=== PATIENT | female | born 1930 | race African-American/Black ===

== ENCOUNTER 2017-04-29 12:16 | Emergency (ER) | payer OTHER, MEDICAID ==
[~2017-04-29] VITALS: Ht 160 cm; Wt 61.2 kg
--- NOTE | 2017-04-29 12:44 | Emergency Room Report ---
History of Present Illness General Chief Complaint: Multiple Trauma/Fall Source: Patient, Family Member Present Illness HPI The patient is an 87 old female brought in by daughter after a fall today. States that she was sitting on the toilet, fell forward, and hit the left side of her head on a cabinet handle. She denies loss of consciousness. She denies falling to the ground. Pain is an 8/10 dull ache to the left side of the face and does not radiate. It worse with touch. She denies any visual changes, headache, nausea, vomiting, neck pain, chest pain, shortness of breath, weakness , numbness or tingling. The patient and daughter deny patient takes aspirin or any blood thinners. Allergies: Coded Allergies: No Known Allergies (Unverified , 04/29/17) Patient History Past Medical History: HTN Pertinent Family History: none Reviewed Nursing Documentation: PMH: Agreed, PSxH: Agreed Nursing Documentation-PMH Hx Hypertension: Yes Review of Systems All Other Systems: negative except mentioned in HPI Physical Exam Vital Signs Date Time Temp Pulse Resp B/P (MAP) Pulse Ox O2 Delivery O2 Flow Rate FiO2 04/29/17 12:39 97.3 68 20 199/71 99 Room Air Sp02 EP Interpretation: reviewed, normal General Appearance: no apparent distress, alert, GCS 15, non-toxic Head: normocephalic, other - Laceration lateral to L eyebrow ENT: hearing grossly normal, normal pharynx, no angioedema, normal voice Neck: full range of motion, supple/symm/no masses Respiratory: chest non-tender, lungs clear, normal breath sounds, speaking full sentences Cardiovascular #1: regular rate, rhythm, no edema Musculoskeletal: back normal, gait/station normal, normal range of motion, tender - L wrist Neurologic: alert, oriented x3, responsive, motor strength/tone normal, sensory intact, speech normal Psychiatric: judgement/insight normal, memory normal, mood/affect normal, no suicidal/homicidal ideation Skin: normal turgor, laceration - 3cm linear laceration lateral to L eyebrow with some bleeding Lymphatic: no adenopathy Procedures Laceration/Wound Repair Laceration/Wound Repair : Consent: Verbal Wound Location: face Wound's Depth, Shape: superficial, into muscle, linear Wound Length (cm): 3 Wound Explored: clean Irrigated w/ Saline (ccs): 100 Betadine Prep?: Yes Anesthesia: 1% Lidocaine, Lidocaine w/ Epi Volume Anesthetic (ccs): 4 Wound Debrided: minimal Wound Repaired With: sutures Suture Size/Type: 6:0, proline Number of Sutures: 5 Layer Closure?: Yes Deep Layer Suture Size/Type: 4:0, other - vicryl Number Deep Layer Sutures: 2 Sterile Dressing Applied?: Yes Splint Applied?: No Sling Applied?: No Patient Tolerated: Well Complications: None Medical Decision Making PA Attestation Dr. Hines is my supervising physician. Patient management was discussed with my supervising physician Diagnostic Impression: Primary Impression: Fall Qualified Codes: W19.XXXA - Unspecified fall, initial encounter Additional Impression: Facial laceration Qualified Codes: S01.81XA - Laceration without foreign body of other part of head, initial encounter ER Course The patient is an 87 old female presenting for fall and facial laceration Differential diagnoses include but not limited to fracture, ICH, laceration, contusion, concussion, among others PE: NAD Head is NC. No raccoon eyes or jolly signs PERRL EOMI There is a 3cm laceration lateral to L eyebrow The wound was irrigated with normal saline and cleaned with betadine. A 27g needle was used to administer 4mL of lidocaine w.o epi for local anaesthesia. 2 deep and 5 superficial sutures were placed with 4-0 Vicryl and 6-0 Nylon respectively. The wound was well approximated and the patient tolerated the procedure well. The wound was then cleaned and bacitracin was applied. CBC unremarkable. No leukocytosis or anemia. CMP shows mildly elevated Cr to 1.1 CK-MB mildly elevated. Trop negative. EKG shows no concerning findings. CT head and facial bones unremarkable [facility] needs [facility] with PMD. Laceration instructions given Laboratory Tests Test 04/29/17 13:30 White Blood Count 5.9 K/UL (4.8-10.8) Red Blood Count 5.01 M/UL (4.20-5.40) Hemoglobin 11.2 G/DL (12.0-16.0) L Hematocrit 37.2 % (37.0-47.0) Mean Corpuscular Volume 74 FL (80-99) L Mean Corpuscular Hemoglobin 22.5 PG (27.0-31.0) L Mean Corpuscular Hemoglobin Concent 30.2 G/DL (32.0-36.0) L Red Cell Distribution Width 12.8 % (11.6-14.8) Platelet Count 198 K/UL (150-450) Mean Platelet Volume 8.7 FL (6.5-10.1) Neutrophils (%) (Auto) 75.2 % (45.0-75.0) H Lymphocytes (%) (Auto) 16.8 % (20.0-45.0) L Monocytes (%) (Auto) 6.1 % (1.0-10.0) Eosinophils (%) (Auto) 0.8 % (0.0-3.0) Basophils (%) (Auto) 1.1 % (0.0-2.0) Prothrombin Time 10.2 SEC (9.30-11.50) Prothrombin Time INR 1.0 (0.9-1.1) PTT 26 SEC (23-33) Sodium Level 144 mEQ/L (135-145) Potassium Level 3.8 mEQ/L (3.4-4.9) Chloride Level 106 mEQ/L (98-107) Carbon Dioxide Level 26 mEQ/L (20-30) Anion Gap 12 (5-15) Blood Urea Nitrogen 23 mg/dL (7-23) Creatinine 1.1 mg/dL (0.5-0.9) H Estimate Glomerular Filtration Rate mL/min (>60) Glucose Level 95 mg/dL (74-106) Calcium Level 9.0 mg/dL (8.6-10.2) Total Bilirubin 0.7 mg/dL (0.0-1.2) Aspartate Amino Transferase (AST) 13 U/L (5-40) Alanine Aminotransferase (ALT) 12 U/L (3-33) Alkaline Phosphatase 51 U/L (35-104) Creatine Kinase MB 4.1 ng/mL (< 3.8) H Troponin I < 0.30 ng/mL (<=0.30) Total Protein 6.7 g/dL (6.6-8.7) Albumin 4.1 g/dL (3.5-5.2) Globulin 2.6 g/dL Albumin/Globulin Ratio 1.5 (1.0-2.7) Lab Results Impression CBC unremarkable. No leukocytosis or anemia. CMP shows mildly elevated Cr to 1.1 CK-MB mildly elevated. Trop negative. EKG shows no concerning findings. EKG Diagnostic Results EP Interpretation: NSR. No acute findings Rate: normal - 60 Rhythm: NSR ST Segments: no acute changes ASA given to the pt in ED: No PA Scribe Text EKG was reviewed and read with my supervising physician. No acute ST segment changes are seen. Normal rate and rhythm. No acute changes. Chest X-Ray Diagnostic Results Chest X-Ray Diagnostic Results : Chest X-Ray Ordered: Yes # of Views/Limited/Complete: 1 View Indication: Other - fall EP Interpretation: Yes Interpretation: no consolidation, no effusion, no pneumothorax, no acute cardiopulmonary disease Impression: No acute disease Electronically Signed by: Zohaib Hines MD PA Scribe Text I am acting as scribe for my supervising physician. My supervising physician's interpretation of the chest xrays are there is no consolidation, no effusion, no acute cardiopulmonary disease, no pneumothorax CT/MRI/US Diagnostic Results CT/MRI/US Diagnostic Results #1: Imaging Test Ordered: CT head Impression No acute findings CT/MRI/US Diagnostic Results #2: Imaging Test Ordered: CT facial bones Impression No acute findings Last Vital Signs Date Time Temp Pulse Resp B/P (MAP) Pulse Ox O2 Delivery O2 Flow Rate FiO2 04/29/17 12:39 97.3 68 20 199/71 99 Room Air Status: improved Disposition: HOME, SELF-CARE Condition: Improved Scripts Bacitracin (Bacitracin) 28.4 Gm Oint...g. 1 APPLIC TOPIC THREE TIMES A DAY, #28 GM Prov: MIKO WHITAKER 04/29/17 Acetaminophen* (TYLENOL EXTRA STRENGTH*) 500 Mg Tablet 500 MG ORAL Q8H Y for Prn Headache/Temp > 101, #30 TAB 0 Refills Prov: MIKO WHITAKER 04/29/17 MIKO WHITAKER Apr 29, 2017 12:44
[2017-04-29] MEDS ORDERED: Bacitracin Oint UD TOPIC ONE (12:45)
[2017-04-29] MEDS ORDERED: Tetanus/Diptheria/Pertussis Vaccine 0.5ml Syr IM ONE (12:45)
[2017-04-29 13:50] LABS: BASOPHILS % (AUTO) 1.1 % (0.0-2.0); EOSINOPHILS % (AUTO) 0.8 % (0.0-3.0); LYMPHOCYTES % (AUTO) 16.8 % (20.0-45.0); MEAN CORPUSCULAR HEMOGLOBIN 22.5 PG (27.0-31.0); MEAN CORPUSCULAR HGB CONC 30.2 G/DL (32.0-36.0); MEAN CORPUSCULAR VOLUME 74 FL (80-99); MEAN PLATELET VOLUME 8.7 FL (6.5-10.1); MONOCYTES % (AUTO) 6.1 % (1.0-10.0); NEUTROPHILS % (AUTO) 75.2 % (45.0-75.0); PLATELET COUNT 198 K/UL (150-450); RED BLOOD COUNT 5.01 M/UL (4.20-5.40); RED CELL DISTRIBUTION WIDTH 12.8 % (11.6-14.8); WHITE BLOOD COUNT 5.9 K/UL (4.8-10.8)
--- NOTE | 2017-04-29 13:51 | Diagnostic Imaging Report ---
Indication: Headache Technique: Contiguous 5 mm thick transaxial imaging of the head obtained in a Siemens Sensation [address] scanner. Soft tissue and bone windows generated. Total Dose length Product (DLP): [address] Dose Index Volume (CTDIvol): 70.38, 0.15 mGy Comparison: none Findings: There is moderate prominence of the ventricles, basal cisterns, and cerebral sulci consistent with atrophy. Cerebellar atrophy is also prominent Moderate, nonspecific, white matter hypoattenuation is noted throughout the brain consistent with chronic small vessel disease. There is no midline shift, edema, acute hemorrhage, mass effect, or abnormal extra-axial fluid collections. Bones and extra osseous soft tissues are unremarkable. Impression: No acute intracranial bleed, mass effect or edema. Moderate atrophy of the brain. Evidence of chronic small vessel disease involving white matter tracts. The CT scanner at [facility] is accredited by the [employer] and the scans are performed using dose optimization techniques as appropriate to a performed exam including Automatic Exposure control.
--- NOTE | 2017-04-29 13:53 | Diagnostic Imaging Report ---
Indication: Trauma Technique: Continuous helical transaxial imaging of the maxillofacial structures obtained without intravenous contrast administration. Coronal 2-D reformats were also obtained. Study obtained in a Siemens sensation [address] Total Dose length Product (DLP): [address] Dose Index Volume (CTDIvol): 0.15, 28.1 mGy Comparison: None Findings: There is no evidence of an acute fracture. Paranasal sinuses and mastoids are clear. Soft tissues are unremarkable. Posterior cervical fusion hardware are noted with multilevel laminectomy. The orbits appear symmetric. The globes are symmetric. There is no proptosis. There is no retrobulbar hemorrhage. Mastoids are clear. Impression: No acute injury identified The CT scanner at [facility] is accredited by the [employer] and the scans are performed using dose optimization techniques as appropriate to a performed exam including Automatic Exposure control.
[2017-04-29 13:54] VITALS: BP 185/72
--- NOTE | 2017-04-29 13:54 | Diagnostic Imaging Report ---
Indication: Dyspnea Comparison: None A single view chest radiograph was obtained. Findings: Bones are osteopenic. The heart is enlarged. Lungs are clear. Cervical fusion hardware noted. Impression: No acute disease
[2017-04-29 13:57] LABS: PROTHROMBIN TIME 10.2 SEC (9.30-11.50)
--- NOTE | 2017-04-29 13:58 | Diagnostic Imaging Report ---
Indication: Pain Findings: 3 views of the left wrist were obtained. No acute fractures, malalignment, erosions or periostitis are identified. Bones are osteopenic. Soft tissues are unremarkable. Impression: No acute injury identified
[2017-04-29 14:06] LABS: TROPONIN I < 0.30 ng/mL (<=0.30)
[2017-04-29 14:09] LABS: ALANINE AMINOTRANSFERASE 12 U/L (3-33); ALBUMIN/GLOBULIN RATIO 1.5 (1.0-2.7); ANION GAP 12 (5-15); ASPARTATE AMINO TRANSFERASE 13 U/L (5-40); CARBON DIOXIDE 26 mEQ/L (20-30); CHLORIDE 106 mEQ/L (98-107); CREATININE 1.1 mg/dL (0.5-0.9); HEMOLYSIS 4; POTASSIUM 3.8 mEQ/L (3.4-4.9); SODIUM 144 mEQ/L (135-145); TOTAL PROTEIN 6.7 g/dL (6.6-8.7)
[2017-04-29 14:19] LABS: CKMB 4.1 ng/mL (< 3.8)
[2017-04-29] MEDS ORDERED: TYLENOL EXTRA500 MG ORAL (14:19)
[2017-04-29] MEDS ORDERED: BACITRACIN15 GM TOPIC (14:19)
[2017-04-29 15:16] VITALS: BP 174/71
== END 2017-04-29 14:45 | disposition home or self-care (01) ==
LOC: EMR 12:54
DX: S01.81XA Laceration without foreign body of other part of head, initial encounter (principal); Z23 Encounter for immunization; I10 Essential (primary) hypertension; W18.12XA Fall from or off toilet with subsequent striking against object, initial encounter; Y93.9 Activity, unspecified; Y92.9 Unspecified place or not applicable; M25.532 Pain in left wrist; I51.7 Cardiomegaly; M85.80 Other specified disorders of bone density and structure, unspecified site; G31.9 Degenerative disease of nervous system, unspecified; I73.9 Peripheral vascular disease, unspecified
CPT/HCPCS: 36415; 70450; 70486; 71010; 80053; 82553; 84484; 85025; 85610; 85730; 90471; 90715; 93005; 96361; 99284

== ENCOUNTER 2017-05-07 11:45 | Emergency (ER) | payer OTHER, MEDICAID ==
[~2017-05-07] VITALS: Ht 154.9 cm; Wt 77.1 kg
[~2017-05-07 11:45] MED LIST: BACITRACIN15 GM TOPIC; TYLENOL EXTRA500 MG ORAL
[2017-05-07 11:52] VITALS: BP 171/73
--- NOTE | 2017-05-07 12:32 | Emergency Room Report ---
History of Present Illness General Chief Complaint: Wound Recheck/Suture Removal Source: Medical Record (Tori Montero) Present Illness HPI 87-year-old female presents to the emergency department for suture removal of stitches that were placed approximately one week ago in the left eyebrow area. Patient states she continues to have pain and swelling to the left wrist despite not being diagnosed with a fracture prior. Denies new trauma or fall. Denies erythema, increased temperature palpation. Patient states the laceration is healing well denies discharge denies pain at the suture site denies erythema. Denies CP, Palpitations, LOC, AMS, dizziness, Changes in Vision , Sensation, paresthesias, or a sudden severe headache. (Tori Montero) Allergies: Coded Allergies: No Known Allergies (Unverified , 04/29/17) Patient History Past Medical History: see triage record Past Surgical History: none Pertinent Family History: none Now: No Immunizations: UTD Reviewed Nursing Documentation: PMH: Agreed, PSxH: Agreed (Tori Montero) Nursing Documentation-PMH Past Medical History: No History, Except For Hx Hypertension: Yes (Tori Montero) Review of Systems All Other Systems: negative except mentioned in HPI (Tori Montero) Physical Exam Vital Signs Date Time Temp Pulse Resp B/P (MAP) Pulse Ox O2 Delivery O2 Flow Rate FiO2 05/07/17 11:52 97.5 16 171/73 99 Room Air 05/07/17 11:52 69 Sp02 EP Interpretation: reviewed, normal General Appearance: no apparent distress, alert, GCS 15, non-toxic Head: normocephalic, atraumatic Eyes: bilateral eye normal inspection, bilateral eye PERRL ENT: hearing grossly normal, normal voice Neck: full range of motion Respiratory: lungs clear, normal breath sounds, speaking full sentences Cardiovascular #1: regular rate, rhythm Musculoskeletal: normal range of motion, swelling - left wrist, tender - left wrist Neurologic: alert, responsive, motor strength/tone normal, sensory intact, speech normal Psychiatric: judgement/insight normal, mood/affect normal Skin: normal color, no rash, warm/dry, well hydrated, wd healing/no infection noted - left eyebrow laceration with sutures in place, no infection noted (Troi Montero) Medical Decision Making PA Attestation Dr. baidllo is my supervising Physician whom patient management has been discussed with. (Tori Montero) Medicare Attestation The history of Angel Ling has been reviewed and management options for her have been examined and discussed by Duran Rodriguez. I have personally examined and interviewed the patient. (DURAN RODRIGUEZ M.D.) Diagnostic Impression: Primary Impression: Encounter for removal of sutures Additional Impression: Wrist pain Qualified Codes: M25.532 - Pain in left wrist ER Course 87-year-old female presents to the emergency department for suture removal of stitches that were placed approximately one week ago in the left eyebrow area. Patient states she continues to have pain and swelling to the left wrist despite not being diagnosed with a fracture prior. Denies new trauma or fall. Denies erythema, increased temperature palpation. Patient states the laceration is healing well denies discharge denies pain at the suture site denies erythema. Denies CP, Palpitations, LOC, AMS, dizziness, Changes in Vision , Sensation, paresthesias, or a sudden severe headache. Ddx considered but are not limited to laceration, tendon injury, cellulitis, dehiscence. Vital signs: are WNL, pt. is afebrile H&PE are most consistent with: healed laceration of the Left eyebrow ORDERS: none required at this time, the diagnosis is clinical ED INTERVENTIONS: - 5 Sutures removed. - Left wrist Splint applied by hospital laboratory technician. Pt. remains neurovascularly intact. DISCHARGE: At this time pt. is stable for d/c to home. Will provide printed patient care instructions, and any necessary prescriptions. Care plan and follow up instructions have been discussed with the patient prior to discharge. (Tori Montero) Last Vital Signs Date Time Temp Pulse Resp B/P (MAP) Pulse Ox O2 Delivery O2 Flow Rate FiO2 05/07/17 11:52 97.5 69 16 171/73 99 Room Air (Tori Montero.[email or web address]) Disposition: HOME, SELF-CARE Condition: Stable Scripts Bacitracin/Polymyxin B Sulfate (BACITRACIN-POLYMYXIN OINTMENT) 28.35 Gm Oint...g. 1 APPLIC TP BID, #28.3 GM Prov: Tori Montero 05/07/17 Referrals: NON PHYSICIAN (PCP) Patient Instructions: Suture Removal, Care After Additional Instructions: Take medications as directed. Follow up with a Primary Care Provider in 3-5 days, even if your symptoms have resolved. --Please review list of primary care clinics, if you do not already have a primary care provider Return sooner to ED if new symptoms occur, or current symptoms become worse. - Please note that this Emergency Department Report was dictated using [email or web address] technology software, occasionally this can lead to erroneous entry secondary to interpretation by the dictation equipment. Tori Montero May 07, 2017 12:32 DURAN RODRIGUEZ M.D. May 08, 2017 14:03
[2017-05-07] MEDS ORDERED: BACITRACIN-P28.35 GM TP (12:33)
[2017-05-07 13:02] VITALS: BP 130/90
== END 2017-05-07 13:04 | disposition home or self-care (01) ==
LOC: EMR 12:20
DX: Z48.02 Encounter for removal of sutures (principal); M25.532 Pain in left wrist; I10 Essential (primary) hypertension
CPT/HCPCS: 99281

== ENCOUNTER → 2018-03-18 | Emergency (ER) | payer OTHER, MEDICAID ==
[~2018-03-18] VITALS: Ht 160 cm; Wt 59.0 kg
[~2018-03-18] MED LIST changes: +BACITRACIN-P28.35 GM TP; +TYLENOL325 MG ORAL
[2018-03-18 22:17] VITALS: BP 130/80
--- NOTE | 2018-03-18 22:38 | Emergency Room Report ---
History of Present Illness General Chief Complaint: Laceration Source: Patient Present Illness HPI Patient presents with laceration to the left elbow This occurred approximately 4:00 this afternoon Patient reports that she had lost her balance with the walker It was felt that the patient was essentially going to sit backwards when the fall occurred Denies any lapse of consciousness denies any chest pain or shortness of breath denies any headache patient had also complained of neck pain There is obvious trauma to the left elbow with a laceration Denies any knee pain or pelvic pain Allergies: Coded Allergies: No Known Allergies (Unverified , 04/29/17) Patient History Past Medical History: see triage record Pertinent Family History: none Reviewed Nursing Documentation: PMH: Agreed; PSxH: Agreed Nursing Documentation-PMH Hx Hypertension: Yes Review of Systems All Other Systems: negative except mentioned in HPI Physical Exam Vital Signs Date Time Temp Pulse Resp B/P (MAP) Pulse Ox O2 Delivery O2 Flow Rate FiO2 03/18/18 22:17 98.0 78 16 130/80 97 Room Air 98.1 Sp02 EP Interpretation: reviewed, normal General Appearance: well appearing, no apparent distress Head: normocephalic, atraumatic Eyes: bilateral eye PERRL, bilateral eye EOMI ENT: normal pharynx Neck: full range of motion, supple, no bony tend - However some discomfort paraspinal C3-4-5 Respiratory: lungs clear, normal breath sounds Cardiovascular #1: regular rate, rhythm, no edema Gastrointestinal: non tender, soft Musculoskeletal: other - Tender on moving the left arm appears to have laceration to the elbow area Neurologic: alert, oriented x3, responsive Skin: other - As above Lymphatic: no adenopathy Procedures Laceration/Wound Repair Laceration/Wound Repair : Consent: Verbal Wound Location: upper extremity Wound's Depth, Shape: irregular Wound Length (cm): 3 Wound Explored: clean Irrigated w/ Saline (ccs): 200 Betadine Prep?: Yes Anesthesia: 1% Lidocaine Volume Anesthetic (ccs): 4 Wound Debrided: minimal Wound Repaired With: sutures Suture Size/Type: 4:0 Number of Sutures: 6 Layer Closure?: No Sterile Dressing Applied?: Yes Splint Applied?: No Patient Tolerated: Well Complications: None Medical Decision Making Diagnostic Impression: Primary Impression: Laceration Additional Impressions: Facial laceration Fall ER Course Given the patient's history exam and the findings multiple imagings are obtained Patient also complaining of left mid rib cage pain CT imaging of the head and C-spine were negative CT imaging of the thoracic region was negative X-ray imaging of the left elbow does not show any obvious acute fracture Patient had sutures and wound care as noted above And is stable for close outpatient follow-up Labs Test 03/18/18 23:00 White Blood Count 6.2 K/UL (4.8-10.8) Red Blood Count 4.84 M/UL (4.20-5.40) Hemoglobin 10.4 G/DL (12.0-16.0) Hematocrit 34.0 % (37.0-47.0) Mean Corpuscular Volume 70 FL (80-99) Mean Corpuscular Hemoglobin 21.5 PG (27.0-31.0) Mean Corpuscular Hemoglobin Concent 30.6 G/DL (32.0-36.0) Red Cell Distribution Width 12.4 % (11.6-14.8) Platelet Count 323 K/UL (150-450) Mean Platelet Volume 7.2 FL (6.5-10.1) Neutrophils (%) (Auto) 69.8 % (45.0-75.0) Lymphocytes (%) (Auto) 22.3 % (20.0-45.0) Monocytes (%) (Auto) 5.0 % (1.0-10.0) Eosinophils (%) (Auto) 1.8 % (0.0-3.0) Basophils (%) (Auto) 1.2 % (0.0-2.0) Sodium Level 139 MMOL/L (136-145) Potassium Level 3.8 MMOL/L (3.5-5.1) Chloride Level 105 MMOL/L (98-107) Carbon Dioxide Level 26 MMOL/L (21-32) Anion Gap 9 mmol/L (5-15) Blood Urea Nitrogen 27 mg/dL (7-18) Creatinine 1.2 MG/DL (0.55-1.30) Estimat Glomerular Filtration Rate mL/min (>60) Glucose Level 108 MG/DL (74-106) Calcium Level 8.8 MG/DL (8.5-10.1) Other X-Ray Diagnostic Results Other X-Ray Diagnostic Results : X-Ray ordered: Left elbow # of Views/Limited Vs Complete: 3 View Indication: Pain EP Interpretation: Yes Interpretation: no dislocation, no soft tissue swelling, no fractures Impression: No acute disease Electronically Signed by: Abbi Chan DO CT/MRI/US Diagnostic Results CT/MRI/US Diagnostic Results : Impression CT head no acute disease CT chest no acute disease CT C-spine no acute disease Last Vital Signs Date Time Temp Pulse Resp B/P (MAP) Pulse Ox O2 Delivery O2 Flow Rate FiO2 03/18/18 22:17 98.0 78 16 130/80 97 Room Air 98.1 Status: improved Disposition: HOME, SELF-CARE Condition: Improved Scripts Acetaminophen (Tylenol) 325 Mg Tablet 650 MG ORAL Q8HR PRN for Prn Pain/Headache/Temp > 101, #20 TAB 0 Refills Prov: Abbi Chan DO 03/19/18 Additional Instructions: Patient is provided with the discharge instructions notified to follow up with primary doctor in the next 2-3 days otherwise return to the er with any worsening symptoms. Please note that this report is being documented using [employer] technology. This can lead to erroneous entry secondary to incorrect interpretation by the dictating instrument. Abbi Chan DO Mar 18, 2018 22:38
[2018-03-18 23:47] LABS: BASOPHILS % (AUTO) 1.2 % (0.0-2.0); EOSINOPHILS % (AUTO) 1.8 % (0.0-3.0); HEMOGLOBIN 10.4 G/DL (12.0-16.0); LYMPHOCYTES % (AUTO) 22.3 % (20.0-45.0); MEAN CORPUSCULAR VOLUME 70 FL (80-99); NEUTROPHILS % (AUTO) 69.8 % (45.0-75.0); PLATELET COUNT 323 K/UL (150-450); RED BLOOD COUNT 4.84 M/UL (4.20-5.40); RED CELL DISTRIBUTION WIDTH 12.4 % (11.6-14.8); WHITE BLOOD COUNT 6.2 K/UL (4.8-10.8)
[2018-03-18 23:49] LABS: ANION GAP 9 mmol/L (5-15); BLOOD UREA NITROGEN 27 mg/dL (7-18); CALCIUM 8.8 MG/DL (8.5-10.1); CARBON DIOXIDE 26 MMOL/L (21-32); CHLORIDE 105 MMOL/L (98-107); CREATININE 1.2 MG/DL (0.55-1.30); POTASSIUM 3.8 MMOL/L (3.5-5.1); SODIUM 139 MMOL/L (136-145)
--- NOTE | 2018-03-19 09:45 | Diagnostic Imaging Report ---
Indication: Neck pain, status post fall Technique: Spiral acquisitions obtained through the cervical spine. No IV contrast utilized. Multiplanar reconstructions were generated. Total dose length product 1445.61 mGycm. CTDIvol(s) 70.38,7.29 mGy. Dose reduction achieved using automated exposure control. Comparison: none Findings: There is evidence of prior laminectomy of C2-C7. Fusion hardware posteriorly extends from C3 through T1. 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 There is also narrowing of the residual disc at all of these levels. No acute fractures. No dislocations. Streak artifact from the surgical hardware obscures the spinal canal. At C3-4, there is mild bilateral neural foraminal stenosis. At C4-5, there is mild bilateral neural foraminal stenosis. At C5-6, there is mild bilateral neural foraminal stenosis. At C6-7, there is mild bilateral neural foraminal stenosis. The included extraspinal soft tissues are unremarkable. The upper aerodigestive tract is unremarkable. Impression: Extensive postsurgical changes, as described Negative for acute fracture or other acute bony trauma This agrees with the preliminary interpretation provided overnight by [employer] teleradiology service. The CT scanner at [facility] is accredited by the [employer] and the scans are performed using protocols designed to limit radiation exposure to as low as reasonably achievable to attain images of sufficient resolution adequate for diagnostic evaluation.
--- NOTE | 2018-03-19 09:47 | Diagnostic Imaging Report ---
Indications: Head pain, status post fall Technique: Spiral acquisitions obtained through the brain. Angled axial and coronal 5 x 5 mm slices were reconstructed. Total dose length product 1445.61 mGycm. CTDI vol(s) 70.38,7.29 mGy. Dose reduction achieved using automated exposure control Comparison: 04/29/2017 Findings: Again demonstrated is mild age-related enlargement of ventricles and extra axial CSF spaces. There is periventricular deep white matter low-attenuation consistent with chronic ischemic change. Otherwise normal oglesby-white differentiation. No acute intracranial hemorrhage or edema, mass effect, nor midline shift. Intact calvarium. Visualized orbits and sinuses are unremarkable. No significant interim change Impression: Chronic and age-related changes Negative for acute intracranial bleed or mass effect This agrees with the preliminary interpretation provided overnight by [employer] [facility] service. The CT scanner at [facility] is accredited by the [employer] and the scans are performed using protocols designed to limit radiation exposure to as low as reasonably achievable to attain images of sufficient resolution adequate for diagnostic evaluation.
--- NOTE | 2018-03-19 09:54 | Diagnostic Imaging Report ---
Clinical Indication: Pain, status post fall Technique: Spiral acquisitions obtained through the chest. No IV contrast utilized, . Multiplanar reconstructions generated. Total dose length product 508.66 mGycm. CTDIvol(s) 13.94 mGy. Dose reduction achieved using automated exposure control Comparison: none Findings: No acute fractures. No pneumothorax. No evidence of retrosternal hematoma. No evidence of significant soft tissue contusion. The lungs demonstrate a calcified nodule in the superior segment of the right upper lobe. They also demonstrate dependent atelectatic changes posteriorly bilaterally. The heart is enlarged. There are degenerative changes of the lumbar spine and possible lower thoracic spinal stenosis. No pericardial effusion. No mediastinal or hilar mass or adenopathy. Included portions of the thyroid appear unremarkable. The included upper abdominal anatomy is unremarkable. Impression: No acute abnormality Cardiomegaly Incidental findings as noted, including old granulomatous disease within the right lung, degenerative lumbar spondylosis The CT scanner at [facility] is accredited by the [employer] and the scans are performed using protocols designed to limit radiation exposure to as low as reasonably achievable to attain images of sufficient resolution adequate for diagnostic evaluation.
--- NOTE | 2018-03-19 09:55 | Diagnostic Imaging Report ---
Indications:Pain, trauma, status post fall Technique: Three or 4 views of the elbow Comparison: None Findings: Exam is suboptimal, as a true lateral view is not available, precluding exclusion of a joint effusion. There are degenerative changes of the olecranon and coronoid process. No definite acute fractures. Impression: Limited; no gross acute bony trauma
== END | disposition home or self-care (01) ==
LOC: EMR 22:24
DX: S51.012A Laceration without foreign body of left elbow, initial encounter (principal); S01.81XA Laceration without foreign body of other part of head, initial encounter; I10 Essential (primary) hypertension; R07.9 Chest pain, unspecified; I51.7 Cardiomegaly; M54.2 Cervicalgia; Z98.1 Arthrodesis status; R51 Headache; W18.39XA Other fall on same level, initial encounter; Y92.009 Unspecified place in unspecified non-institutional (private) residence as the place of occurrence of the external cause
CPT/HCPCS: 36415; 70450; 71250; 72125; 80048; 85025; 99284

== ENCOUNTER 2018-04-09 13:40 | Emergency (ER) | payer MEDICAID, OTHER ==
[~2018-04-09] VITALS: Ht 160 cm; Wt 61.2 kg
[2018-04-09 14:11] VITALS: BP 152/62
--- NOTE | 2018-04-09 14:17 | Emergency Room Report ---
History of Present Illness General Chief Complaint: Wound Recheck/Suture Removal Source: Patient Present Illness HPI Pt. presents to the ED c/o sutures in the left forearm that need to be removed s /p wound closure on the lateral left elbow. Denies erythema, bleeding, discharge , warmth or tenderness. UTD with vaccinations. no other complaints at this time. Allergies: Coded Allergies: No Known Allergies (Unverified , 04/29/17) Patient History Past Medical History: see triage record Past Surgical History: none Pertinent Family History: none Now: No Immunizations: UTD Reviewed Nursing Documentation: PMH: Agreed; PSxH: Agreed Nursing Documentation-PMH Past Medical History: No Stated History Hx Hypertension: Yes Review of Systems All Other Systems: negative except mentioned in HPI Physical Exam Vital Signs Date Time Temp Pulse Resp B/P (MAP) Pulse Ox O2 Delivery O2 Flow Rate FiO2 04/09/18 14:01 98.1 66 15 152/62 100 Room Air 98.1 Sp02 EP Interpretation: reviewed, normal General Appearance: no apparent distress, alert, GCS 15, non-toxic Head: normocephalic, atraumatic Eyes: bilateral eye normal inspection, bilateral eye PERRL ENT: hearing grossly normal, normal voice Neck: full range of motion Respiratory: lungs clear, normal breath sounds, speaking full sentences Cardiovascular #1: regular rate, rhythm Musculoskeletal: back normal, normal range of motion, non-tender Neurologic: alert, oriented x3, responsive, motor strength/tone normal, sensory intact, speech normal, grossly normal Psychiatric: judgement/insight normal Skin: normal color, no rash, warm/dry, well hydrated, wd healing/no infection noted - lateral left elbow with [address] Medical Decision Making PA Attestation Dr. Castellanos is my supervising Physician whom patient management has been discussed with. Diagnostic Impression: Primary Impression: Encounter for removal of sutures ER Course Pt. presents to the ED c/o sutures in the left forearm that need to be removed s /p wound closure on the lateral left elbow. Denies erythema, bleeding, discharge , warmth or tenderness. UTD with vaccinations. no other complaints at this time. Ddx considered but are not limited to laceration, tendon injury, cellulitis, dehiscence. Vital signs: are WNL, pt. is afebrile H&PE are most consistent with: healed laceration of the Left forearm ORDERS: none required at this time, the diagnosis is clinical ED INTERVENTIONS: - 3 Sutures removed. DISCHARGE: At this time pt. is stable for d/c to home. Will provide printed patient care instructions, and any necessary prescriptions. Care plan and follow up instructions have been discussed with the patient prior to discharge. Last Vital Signs Date Time Temp Pulse Resp B/P (MAP) Pulse Ox O2 Delivery O2 Flow Rate FiO2 04/09/18 14:01 98.1 66 15 152/62 100 Room Air 98.1 Disposition: HOME, SELF-CARE Condition: Stable Patient Instructions: Suture Removal, Care After Additional Instructions: Take medications as directed. Follow up with a Primary Care Provider in 3-5 days, even if your symptoms have resolved. --Please review list of primary care clinics, if you do not already have a primary care provider Return sooner to ED if new symptoms occur, or current symptoms become worse. - Please note that this Emergency Department Report was dictated using [employer] fitter maintenance technology software, occasionally this can lead to erroneous entry secondary to interpretation by the dictation equipment. Tori Montero Apr 09, 2018 14:17
[2018-04-09 14:54] VITALS: BP 152/62
== END 2018-04-09 14:55 | disposition home or self-care (01) ==
LOC: EMR 14:29
DX: Z48.02 Encounter for removal of sutures (principal)
CPT/HCPCS: 99282

== ENCOUNTER 2018-08-05 17:20 | Inpatient (IN) | payer OTHER, MEDICAID ==
[~2018-08-05] VITALS: Ht 160 cm; Wt 52.6 kg
--- NOTE | 2018-08-05 17:37 | NUR ---
ED Nurse Note: pt was wheeled in by family memeber c/o Lt foot pain 05/13 which started 2 months ago. at time of arrival patient presents with a sweollen left foot, states that this has been going for a while, patient is accompanied by daughter, states that the patient is not able to bear weight in both legs. patient is alert and oriented x3
[2018-08-05] MEDS ORDERED: Morphine Sulfate 2mg/ml Inj IVP ONE (17:45)
[2018-08-05] MEDS ORDERED: Sodium Chloride 500ML 550 ML IV SCH (17:45)
[2018-08-05 17:47] VITALS: BP 192/70
--- NOTE | 2018-08-05 18:25 | Emergency Room Report ---
History of Present Illness General Chief Complaint: Pain Source: Patient, Family Member Present Illness HPI Patient presents with increased left foot pain. She status post what sounds like angioplasty for her circulation back in February. Afterwards there is a blister on the foot. On June 17 she had the toenail is ingrown that was worked on by a abrasive worker. The foot has undergone progressive worsening after that time. The pain now is 10/10. The daughter has given some Motrin. She's been unsteady on her feet. There's been some falling episodes assisted to the ground by the daughter. There is no evidence of head trauma. A physical therapist felt that there might be evidence of Parkinson's and had recommended possibly starting anti-Parkinson's medication. She denies diabetes fevers or chills. No nausea vomiting diarrhea dysuria. Daughter says that last tetanus was within the last year. The patient has some functional decline. Allergies: Coded Allergies: No Known Allergies (Unverified , 04/29/17) Patient History Past Medical History: see triage record Past Surgical History: other - Angioplasty for periphe Social History: Denies: smoking Social History Narrative with daughter Now: No Reviewed Nursing Documentation: PMH: Agreed; PSxH: Agreed Nursing Documentation-PMH Past Medical History Deferred: Pt Cognitively Impaired Past Medical History: No Stated History Hx Hypertension: Yes Review of Systems All Other Systems: negative except mentioned in HPI Physical Exam Vital Signs Date Time Temp Pulse Resp B/P (MAP) Pulse Ox O2 Delivery O2 Flow Rate FiO2 08/05/18 17:28 97.7 77 17 192/70 100 Room Air General Appearance: no apparent distress, alert, non-toxic, Chronically Ill Head: normocephalic, atraumatic Eyes: bilateral eye normal inspection, bilateral eye PERRL ENT: moist mucus membranes Neck: supple Respiratory: chest non-tender, lungs clear, normal breath sounds Cardiovascular #1: regular rate, rhythm, edema - L foot Cardiovascular #2: 2+ radial (L), 2+ dorsalis pedis (R), 2+ dorsalis pedis (L) Gastrointestinal: normal bowel sounds, non tender, soft Genitourinary: no CVA tenderness Musculoskeletal: back normal, swelling - Dorsum left foot with skin breakdown and discoloration with some erythema. Neurologic: alert, DTRs symmetric, sensory intact, motor weakness - Diffuse, other - Cogwheeling and some rigidity, sometimes difficult to understand speech , oriented - X2 Psychiatric: depressed affect Skin: other - L foot discolored and somewhat mottled, ulcers on big toe and 4th toe Medical Decision Making Diagnostic Impression: Primary Impression: Ischemic ulcer of left foot Qualified Codes: L97.521 - Non-pressure chronic ulcer of other part of left foot limited to breakdown of skin Additional Impressions: Parkinsonian features Cellulitis of left foot Peripheral vascular disease ER Course Patient presents with foot pain, skin changes and history of peripheral vascular disease. Differential includes gangrene, cellulitis, osteomyelitis, ischemic foot amongst others. Evaluation will be with chest x-ray, foot x-ray, arterial studies and labs. The patient will be treated for pain and given gentle IV hydration. Antibiotics are indicated as it appears that there is an acute infection. EKG without injury. Chest x-ray unremarkable. Foot x-ray without osteomyelitis. White count normal. CMP with elevated BUN suggesting dehydration. Slightly elevated CPK. BNP is minimally elevated. The patient is improved with analgesia. She is admitted for further evaluation and treatment with IV antibiotics. Admit med Dr. Urbina. Laboratory Tests Test 08/05/18 17:45 08/05/18 18:30 Lactic Acid Level 1.40 mmol/L (0.4-2.0) White Blood Count 5.4 K/UL (4.8-10.8) Red Blood Count 5.19 M/UL (4.20-5.40) Hemoglobin 11.0 G/DL (12.0-16.0) L Hematocrit 36.1 % (37.0-47.0) L Mean Corpuscular Volume 70 FL (80-99) L Mean Corpuscular Hemoglobin 21.3 PG (27.0-31.0) L Mean Corpuscular Hemoglobin Concent 30.5 G/DL (32.0-36.0) L Red Cell Distribution Width 12.5 % (11.6-14.8) Platelet Count 286 K/UL (150-450) Mean Platelet Volume 7.0 FL (6.5-10.1) Neutrophils (%) (Auto) 63.0 % (45.0-75.0) Lymphocytes (%) (Auto) 27.2 % (20.0-45.0) Monocytes (%) (Auto) 7.3 % (1.0-10.0) Eosinophils (%) (Auto) 0.8 % (0.0-3.0) Basophils (%) (Auto) 1.7 % (0.0-2.0) Erythrocyte Sedimentation Rate 22 MM/HR (0-30) Prothrombin Time 10.2 SEC (9.30-11.50) Prothrombin Time INR 1.0 (0.9-1.1) PTT 28 SEC (23-33) Sodium Level 135 MMOL/L (136-145) L Potassium Level 4.6 MMOL/L (3.5-5.1) Chloride Level 99 MMOL/L (98-107) Carbon Dioxide Level 28 MMOL/L (21-32) Anion Gap 8 mmol/L (5-15) Blood Urea Nitrogen 26 mg/dL (7-18) H Creatinine 1.2 MG/DL (0.55-1.30) Estimate Glomerular Filtration Rate mL/min (>60) Glucose Level 87 MG/DL (74-106) Calcium Level 9.2 MG/DL (8.5-10.1) Total Bilirubin 0.5 MG/DL (0.2-1.0) Aspartate Amino Transferase (AST) 30 U/L (15-37) Alanine Aminotransferase (ALT) 55 U/L (12-78) Alkaline Phosphatase 75 U/L (46-116) Total Creatine Kinase 546 U/L (26-308) H Troponin I 0.003 ng/mL (0.000-0.056) Pro-B-Type Natriuretic Peptide 308 pg/mL (0-125) H Total Protein 8.1 G/DL (6.4-8.2) Albumin 3.7 G/DL (3.4-5.0) Globulin 4.4 g/dL Albumin/Globulin Ratio 0.8 (1.0-2.7) L Thyroid Stimulating Hormone (TSH) 3.611 uiU/mL (0.358-3.740) EKG Diagnostic Results Rate: normal Rhythm: NSR ST Segments: no acute changes Rhythm Strip Diag. Results EP Interpretation: yes Rhythm: NSR, no PVC's, no ectopy Chest X-Ray Diagnostic Results Chest X-Ray Diagnostic Results : Chest X-Ray Ordered: Yes # of Views/Limited/Complete: 1 View EP Interpretation: Yes Interpretation: no consolidation, no effusion, no pneumothorax Impression: No acute disease Electronically Signed by: Electronically signed by Zohaib Hines MD Other X-Ray Diagnostic Results Other X-Ray Diagnostic Results : X-Ray ordered: Left foot # of Views/Limited Vs Complete: 3 View Indication: Pain EP Interpretation: Yes Interpretation: no dislocation, no soft tissue swelling, no fractures, other - No evidence of osteomyelitis however osteopenia Impression: Other Electronically Signed by: Electronically signed by Zohaib Hines MD CT/MRI/US Diagnostic Results CT/MRI/US Diagnostic Results : Imaging Test Ordered: vasc Impression monophasic flow Last Vital Signs Date Time Temp Pulse Resp B/P (MAP) Pulse Ox O2 Delivery O2 Flow Rate FiO2 08/06/18 00:00 98.7 76 16 136/51 (79) 98 08/05/18 22:51 Room Air Status: improved Disposition: ADMITTED INPATIENT Condition: Serious Referrals: NON PHYSICIAN (PCP) Zohaib Hines MD Aug 05, 2018 18:25
--- NOTE | 2018-08-05 19:08 | NUR ---
HAND-OFF: Report given to JERZY Rendon.
[2018-08-05 19:09] LABS: BASOPHILS % (AUTO) 1.7 % (0.0-2.0); EOSINOPHILS % (AUTO) 0.8 % (0.0-3.0); HEMATOCRIT 36.1 % (37.0-47.0); LYMPHOCYTES % (AUTO) 27.2 % (20.0-45.0); MEAN CORPUSCULAR VOLUME 70 FL (80-99); MONOCYTES % (AUTO) 7.3 % (1.0-10.0); PLATELET COUNT 286 K/UL (150-450); RED BLOOD COUNT 5.19 M/UL (4.20-5.40); RED CELL DISTRIBUTION WIDTH 12.5 % (11.6-14.8); WHITE BLOOD COUNT 5.4 K/UL (4.8-10.8)
--- NOTE | 2018-08-05 19:10 | NUR ---
ED Nurse Note: Received Pt and report from day shift. Knowing Pt will admit to 4E, await for the bed open.
[2018-08-05 19:25] LABS: ANION GAP 8 mmol/L (5-15); BLOOD UREA NITROGEN 26 mg/dL (7-18); CALCIUM 9.2 MG/DL (8.5-10.1); CARBON DIOXIDE 28 MMOL/L (21-32); CHLORIDE 99 MMOL/L (98-107); CREATININE 1.2 MG/DL (0.55-1.30); POTASSIUM 4.6 MMOL/L (3.5-5.1); SODIUM 135 MMOL/L (136-145)
--- NOTE | 2018-08-05 19:33 | NUR ---
ED Nurse Note: Pt's daughter phone # Dalila [phone], Son Fredi [phone]
[2018-08-05 19:40] LABS: ALANINE AMINOTRANSFERASE 55 U/L (12-78); ALBUMIN 3.7 G/DL (3.4-5.0); ALBUMIN/GLOBULIN RATIO 0.8 (1.0-2.7); ALKALINE PHOSPHATASE 75 U/L (46-116); ASPARTATE AMINO TRANSFERASE 30 U/L (15-37); BILIRUBIN,TOTAL 0.5 MG/DL (0.2-1.0); CREATINE KINASE 546 U/L (26-308)
[2018-08-05] MEDS ORDERED: Piperacillin/Tazobactam 3.375 GM in NS 110 ML IVPB ONE (20:30)
[2018-08-05 21:30] VITALS: BP 154/75
[2018-08-05] MEDS ORDERED: Milk of Magnesia 30ml Ud ORAL PRN (21:30)
[2018-08-05] MEDS ORDERED: Zolpidem 5mg tab ORAL PRN (21:30)
--- NOTE | 2018-08-05 21:30 | NUR ---
ED Nurse Note: Admit Pt to 4E room 402-1. Pt is AO x 3times, VSS, on room air no distress. Belongings and skin inform to floor nurse. Report given to RN Enrique, daughter is on bedside.
--- NOTE | 2018-08-05 21:45 | NUR ---
NURSE NOTES: Received report from Mansi Mccall. Patient was moved to 402-1. Patient is awake, able to make simple needs known. No belongings noted. family is at bedside. Will orient patient to the room and vital signs. Call light at bedside.
[2018-08-05] MEDS: Heparin 5000 units/ml inj SUBQ SCH (22:42)
[2018-08-05] MEDS ORDERED: Vancomycin 1gm in D5W 275ml IVPB SCH (23:00)
[2018-08-05] MEDS ORDERED: PROZAC20 MG ORAL (23:35)
[2018-08-06] VITALS: BP 136/51
[2018-08-06 04:29] VITALS: BP 149/52
[2018-08-06] MEDS: Piperacillin/Tazobactam 3.375 GM in D5W 110 ML IVPB SCH ×3 (05:05→21:37)
--- NOTE | 2018-08-06 05:28 | NUR ---
NURSE NOTES: Noted Closed blister on Lt shoulder with intact skin, [id number] noted.Will continue to monitor.
[2018-08-06] MEDS: Morphine Sulfate 4mg/ml Inj (IV/IM USE ONLY) IVP PRN ×3 (06:17→21:38)
[2018-08-06 07:03] LABS: APPEARANCE,URINE CLEAR; BILIRUBIN, URINE NEGATIVE (NEGATIVE); COLOR,URINE PALE YELLOW; GLUCOSE, URINE (UA) NEGATIVE (NEGATIVE); KETONES,URINE NEGATIVE (NEGATIVE); LEUKOCYTE ESTERASE ,URINE NEGATIVE (NEGATIVE); NITRITE,URINE NEGATIVE (NEGATIVE); PH,URINE 6 (4.5-8.0); PROTEIN,URINE 1+ (NEGATIVE); UROBILINOGEN,URINE NORMAL MG/DL (0.0-1.0)
--- NOTE | 2018-08-06 07:27 | NUR ---
HAND-OFF: Report given to JERZY Guzman. Addendum: 08/06/18 at 4267 by GERARDO SIMS RN RN NURSE NOTES: JERZY Rizo
--- NOTE | 2018-08-06 07:44 | NUR ---
NURSE NOTES: Received patient from Enrique BERTRAND, patient is up in bed, alert and cooperative, no distress noted, bed is locked and in lowest position, call light within reach, will continue to monitor.
[2018-08-06 08:00] VITALS: BP 137/68
[2018-08-06] MEDS: Heparin 5000 units/ml inj SUBQ SCH ×2 (08:09→21:39)
--- NOTE | 2018-08-06 11:26 | Diagnostic Imaging Report ---
Indication: Foot pain Comparison: None Findings: 3 views of the left foot were obtained. Acute fracture of the fifth metatarsal demonstrated distally. Bones are osteopenic. There is generalized osteopenia present. IMPRESSION: Acute fracture fifth metatarsal
--- NOTE | 2018-08-06 11:27 | Diagnostic Imaging Report ---
Indication: Dyspnea Comparison: 04/29/2017 A single view chest radiograph was obtained. Findings: Cardiomediastinal appearance is within normal limits for age. Aorta is mildly calcified. The lungs are clear. Pulmonary vascularity is appropriate. The diaphragmatic contour is smooth and costophrenic angles are sharp. No pleural effusions are identified. The bones are osteopenic. Cervical fusion hardware noted. Impression: No acute findings
[2018-08-06 12:00] VITALS: BP 117/52
--- NOTE | 2018-08-06 12:31 | Podiatric Progress Note ---
Assessment/Plan Patient Angel Ling is a 88 year old female who was admitted on Aug 05, 2018 at 18:21 with Assessment/Plan A: Left foot closed 5th metatarsal fracture, minimally displaced. Left foot hallux callus P: - Pt seen and evaluated. - Left foot XR completed and reviewed. Official report negative for any acute OM or ST infection, positive for fx 5th metatarsal. - Temp, 97.7 - WBC 5.4 - ESR 22 - Left foot MRI ordered, complete if no contraindications are present. - Ordered LLE US arterial. - NWB to LLE strict protocol 09/05 fx. - Will apply post splint at bedside. - Pain management per primary team. - No acute surgical intervention required, will await imaging results. - Pod will cont to monitor. Subjective Allergies: Coded Allergies: No Known Allergies (Unverified , 04/29/17) Subjective - Pt seen bedside for Left foot hallux pain with distal tip eschar and 5th metatarsal fracture. Pt was admitted yesterday from ER for Left foot pain. Pt is somewhat poor historian, unable to provide full HPI. Objective Exam Last 24 Hour Vital Signs Date Time Temp Pulse Resp B/P (MAP) Pulse Ox O2 Delivery O2 Flow Rate FiO2 08/06/18 08:00 97.2 78 20 137/68 (91) 99 08/06/18 08:00 Room Air 08/06/18 04:29 98.6 73 16 149/52 (84) 99 08/06/18 00:00 98.7 76 16 136/51 (79) 98 08/05/18 22:51 Room Air 08/05/18 21:30 98.0 74 18 154/75 100 Room Air 08/05/18 21:30 98.0 74 18 154/75 100 Room Air 08/05/18 18:31 83 180/57 08/05/18 17:47 97.7 67 17 192/70 100 Room Air 08/05/18 17:28 97.7 77 17 192/70 100 Room Air Laboratory Tests Test 08/05/18 17:45 08/05/18 18:30 Lactic Acid Level 1.40 mmol/L (0.4-2.0) White Blood Count 5.4 K/UL (4.8-10.8) Red Blood Count 5.19 M/UL (4.20-5.40) Hemoglobin 11.0 G/DL (12.0-16.0) L Hematocrit 36.1 % (37.0-47.0) L Mean Corpuscular Volume 70 FL (80-99) L Mean Corpuscular Hemoglobin 21.3 PG (27.0-31.0) L Mean Corpuscular Hemoglobin Concent 30.5 G/DL (32.0-36.0) L Red Cell Distribution Width 12.5 % (11.6-14.8) Platelet Count 286 K/UL (150-450) Mean Platelet Volume 7.0 FL (6.5-10.1) Neutrophils (%) (Auto) 63.0 % (45.0-75.0) Lymphocytes (%) (Auto) 27.2 % (20.0-45.0) Monocytes (%) (Auto) 7.3 % (1.0-10.0) Eosinophils (%) (Auto) 0.8 % (0.0-3.0) Basophils (%) (Auto) 1.7 % (0.0-2.0) Erythrocyte Sedimentation Rate 22 MM/HR (0-30) Prothrombin Time 10.2 SEC (9.30-11.50) Prothromb Time International Ratio 1.0 (0.9-1.1) Activated Partial Thromboplast Time 28 SEC (23-33) Sodium Level 135 MMOL/L (136-145) L Potassium Level 4.6 MMOL/L (3.5-5.1) Chloride Level 99 MMOL/L (98-107) Carbon Dioxide Level 28 MMOL/L (21-32) Anion Gap 8 mmol/L (5-15) Blood Urea Nitrogen 26 mg/dL (7-18) H Creatinine 1.2 MG/DL (0.55-1.30) Estimat Glomerular Filtration Rate mL/min (>60) Glucose Level 87 MG/DL (74-106) Calcium Level 9.2 MG/DL (8.5-10.1) Total Bilirubin 0.5 MG/DL (0.2-1.0) Aspartate Amino Transf (AST/SGOT) 30 U/L (15-37) Alanine Aminotransferase (ALT/SGPT) 55 U/L (12-78) Alkaline Phosphatase 75 U/L (46-116) Total Creatine Kinase 546 U/L (26-308) H Troponin I 0.003 ng/mL (0.000-0.056) Pro-B-Type Natriuretic Peptide 308 pg/mL (0-125) H Total Protein 8.1 G/DL (6.4-8.2) Albumin 3.7 G/DL (3.4-5.0) Globulin 4.4 g/dL Albumin/Globulin Ratio 0.8 (1.0-2.7) L Thyroid Stimulating Hormone (TSH) 3.611 uiU/mL (0.358-3.740) Dermatological Dermatological Narrative Vasc: +1/4 DP/PT pulses Derm: Eschar noted distal tip of L hallux and dorsal 1st MPJ. Neuro: SILT decreased to all dermatomes. MSK: Pt unable to perform ROM exam to Left foot, (+) pain upon palpation distal 5th metatarsal. Janes Antonio DPM Aug 06, 2018 12:31
--- NOTE | 2018-08-06 15:02 | History & Physical ---
History and Physical History & Physicial HP dictated # [id number] Beni Urbina MD Aug 06, 2018 15:02
--- NOTE | 2018-08-06 15:33 | NUR ---
NO INSURANCE INFORMATION IN THE BAR TO SEND CLINICALS OR REVIEWS
--- NOTE | 2018-08-06 15:45 | NUR ---
INSURANCE AVAILABLE CLINICALS FAXED TO: [facility] NCM:CORINE P:[phone] F:[phone] REF#[id number]
--- NOTE | 2018-08-06 16:10 | NUR ---
CASE MANAGEMENT:REVIEW 88YR OLD FEMALE FROM HOME TO ER CC: LT FOOT PAIN AND SWELLING PMH: WAS SEEN IN JUNE FOR LT FOOT SI: ISCHEMIC LEFT FOOT. PVD. LT FOOT CELLULITIS 97.7 77 17 192/70 100% ON RA BUN+26 TCK+546 IS: 500CC NS BOLUS IV MORPHINE IV ZOFRAN IV ZOSYN IV LEVAQUIN NORVASC XRAY FOOT BLOOD CX CXR : TO MED/SURG INTERQUAL CRITERIA MET
--- NOTE | 2018-08-06 16:43 | NUR ---
08/06 @ 1630 HRS pt UNABLE TO TOLERATE EXAM. SEDATION IS NEEDED IN ORDER TO DO EXAM. - CS
--- NOTE | 2018-08-06 17:25 | General Progress Note ---
Progress Note Progress Note Patient seen and examined Dementia Left foot pain x 2months per son Calcific PAD with absent pop and pedal pulses Left foot fracture on xray HTN DM Rec Complete vascular duplex and CT angio Podiatry eval and MRI left foot CT brain r/o cva Will need selective left leg angiogram to assess for percutaneous revascularization once medically cleared d/w pt's son and nurse at bedside Duncan Osborn MD Aug 06, 2018 17:25
[2018-08-06] MEDS ORDERED: Isovue-370 150ml vial INJ PRN ×2 (17:30)
--- NOTE | 2018-08-06 19:30 | NUR ---
NURSE NOTES: Received report from JERZY Rizo. Patient A&Ox2-3. In bed, On room air, no signs of distress or labored breathing. Patient found holding a removed IV. Currently denies pain. Bed in lowest position with call light in reach. Will continue with plan of care.
--- NOTE | 2018-08-06 19:31 | NUR ---
HAND-OFF: Report given to Ashley BERTRAND.
[2018-08-06 20:00] VITALS: BP 161/52
[2018-08-06] MEDS ORDERED: Vancomycin 500mg in D5W 275ml IVPB SCH (23:00)
[2018-08-06 23:10] VITALS: BP 151/81
--- NOTE | 2018-08-07 00:42 | History and Physical Report ---
DATE OF ADMISSION: 08/05/2018 CHIEF COMPLAINT: Left foot pain. HISTORY OF PRESENT ILLNESS: This is an 88-year-old female, who was brought into the emergency room for left foot pain. The patient lives with her daughter. She is somewhat a poor historian. History was obtained from the son who was at bedside. Apparently, the patient had problems with circulation to the left leg and had angioplasty in June. She has an ingrown toenail and she was followed by a high pressure cleaner, but her condition has been getting worse. She came to the emergency room with severe pain in the left foot. PAST MEDICAL HISTORY: Includes history of some Parkinson and history of hypertension. No history of diabetes. SOCIAL HISTORY: The patient lives with her daughter. No history of smoking or alcohol abuse. ALLERGIES: No known drug allergies. REVIEW OF SYSTEMS: Noncontributory except above. PHYSICAL EXAMINATION: GENERAL: The patient is an elderly female, in no acute distress. VITAL SIGNS: Blood pressure is 117/52, pulse 67, temperature 97.3, and respirations 20. HEENT: [place] conjunctivae. Anicteric sclerae. NECK: Supple. LUNGS: Clear to auscultation. HEART: S1, S2 without murmurs or rubs. ABDOMEN: Soft and nontender. EXTREMITIES: The patient has wedge shaped discoloration of the distal foot on the left. There is also significant fungus between the toes. LABORATORY DATA: CBC shows WBC of 36 and platelets 286,000. The chemistry panel shows sodium 135, potassium 4.6, chloride 99, CO2 28, BUN 26, and creatinine 1.2. ASSESSMENT: This is an 88-year-old female, who was admitted with left foot pain, ischemic changes. Apparently, the patient has also fracture of the right metatarsal known. PLAN: The patient will be on pain medication. She is followed by high pressure cleaner Dr. Mina and Dr. Osborn for vascular surgery. Further care will be discussed with them. I also ordered clotrimazole for the fungus. Beni Urbina M.D. DR: CLARIBEL JOB#: [id number] CC:
[2018-08-07 00:44] VITALS: BP 166/77
[2018-08-07] MEDS: Vancomycin 500mg in D5W 275ml IVPB SCH (01:58)
[2018-08-07 04:00] VITALS: BP 168/57
[2018-08-07] MEDS: Piperacillin/Tazobactam 3.375 GM in D5W 110 ML IVPB SCH ×3 (04:56→20:56)
[2018-08-07] MEDS: Morphine Sulfate 4mg/ml Inj (IV/IM USE ONLY) IVP PRN ×2 (04:56→09:33)
--- NOTE | 2018-08-07 07:50 | NUR ---
HAND-OFF: Report given to Edwige Mireles RN.
[2018-08-07 08:00] VITALS: BP_SYST 140; BP_SYST 155; BP_DIAS 68
--- NOTE | 2018-08-07 09:00 | NUR ---
NURSE NOTES: pt in bed with no sob nor in any form of distress noted. all due meds given as ordered. denies pain at this time. will continue to monitor
[2018-08-07] MEDS: Heparin 5000 units/ml inj SUBQ SCH ×2 (09:37→20:55)
[2018-08-07] MEDS ORDERED: LORazepam Inj 2mg/ml 1ml IV ONE (10:20)
--- NOTE | 2018-08-07 11:30 | NUR ---
NURSE NOTES: pt sent to CT and MRI. pain med given prior to be sent. will continue to monitor
--- NOTE | 2018-08-07 12:42 | NUR ---
CONCERNING MRI AND CTA... SECOND ATTEMPT TO PERFORM MRI DID NOT SUCCEED. DESPITE THE PT GIVEN IV PAIN MEDS AND SEDATION, PT CONTINUED TO MOVE HER LEGS EVEN WHILE SHE SLEPT.WE HAD STRAPPED DOWN HER LEGS, AND CONTINUED TO WAIT FOR HER TO SLEEP DEEPER, BUT AFTER ONE HOUR SHE WAS FAST ASLEEP BUT STILL CONTINUED TO MOVE. THE CT DEPT DID NOT WISH TO PERFORM THE EXAM EITHER DUE TO THE PATIENT'S CONTINUOUS MOVEMENT. MANGA ARTISTJERZY CHAPA HAS BEEN INFORMED, AND DR. BARTH'S OFFICE HAS BEEN CALLED. STEVEN 12:53 Addendum: 08/07/18 at 1255 by ROLANDA REARDON MARY WILLS.
--- NOTE | 2018-08-07 15:01 | General Progress Note ---
Assessment/Plan Problem List: (1) Ischemic ulcer of left foot ICD Codes: L97.529 - Non-pressure chronic ulcer of other part of left foot with unspecified severity SNOMED: 948727940 Qualifiers: Qualified Codes: L97.521 - Non-pressure chronic ulcer of other part of left foot limited to breakdown of skin (2) Parkinsonian features ICD Codes: R25.9 - Unspecified abnormal involuntary movements SNOMED: 512883846 (3) Cellulitis of left foot ICD Codes: L03.116 - Cellulitis of left lower limb SNOMED: 749429981 (4) Peripheral vascular disease ICD Codes: I73.9 - Peripheral vascular disease, unspecified SNOMED: 326566263 Assessment/Plan vasc W/U MRI could not be done Abxs Subjective Allergies: Coded Allergies: No Known Allergies (Unverified , 04/29/17) Subjective In NAD Objective Last 24 Hour Vital Signs Date Time Temp Pulse Resp B/P (MAP) Pulse Ox O2 Delivery O2 Flow Rate FiO2 08/07/18 10:03 98.1 08/07/18 09:00 Room Air 08/07/18 08:00 98.0 77 20 155/68 (97) 99 08/07/18 04:00 98.1 75 18 168/57 (94) 99 08/07/18 00:44 99.1 77 18 166/77 (106) 99 08/06/18 23:10 85 151/81 (104) 08/06/18 21:00 Room Air 08/06/18 20:00 98.1 81 18 161/52 (88) 100 Intake and Output 08/06/18 08/07/18 19:00 07:00 Intake Total 1680 ml Output Total 1300 ml Balance 380 ml Intake Oral 1380 ml Other 300 ml Output Urine Total 1300 ml # Voids 2 Height (Feet): 5 Height (Inches): 3.00 Weight (Pounds): 116 Cardiovascular: normal rate Respiratory/Chest: lungs clear Edema: no edema noted Generalized Beni Urbina MD Aug 07, 2018 15:01
--- NOTE | 2018-08-07 15:22 | NUR ---
METAL CASKET ASSEMBLERSALES PROJECT COORDINATOR SI: ISCHEMIC LEFT FOOT T. 98.0 HR 77 RR 20 B/P 155/68 IS: VANCO IV ZOSYN IV HEPARIN SUBC ATIVAN IV MED/SURG STATUS
--- NOTE | 2018-08-07 15:25 | NUR ---
AIR BREAKER OPERATOR NOTES RECEIVED A CALL FROM STONE FROM DR RENEE OFFICE, STATING PT TO BE TRANSFERRED TO [facility] FOR A ANGIO PROCEDURE. PLACED CALL TO CORINE FROM REJI MADE AWARE OF PT NEEDING TRANSFER TO A HIGHER LEVEL OF CARE PER CORINE SHE IS UNABLE TO AUTHORIZED TRANSFER BECAUSE [facility] IS OUT OF NETWORK. HOWEVER [facility] IS CONTRACTED AND CAN BE TRANSFERRED THERE WITHOUT AUTHORIZATION. PLACED A CALL TO STONE MADE AWARE OF INSURANCE CONVERSATION. STATED SHE WILL NOTIFY
[2018-08-07 16:00] VITALS: BP 147/59
--- NOTE | 2018-08-07 19:30 | NUR ---
NURSE NOTES: Received report from Edwige Mireles RN. Patient sleeping. On room air, no signs of distress or labored breathing. Family at the bedside. Will continue to monitor.
--- NOTE | 2018-08-07 19:31 | NUR ---
HAND-OFF: Report given to JERZY Cat.
[2018-08-07 20:00] VITALS: BP 163/64
[2018-08-07 21:45] VITALS: BP 142/72
[2018-08-08] VITALS: BP 163/83
[2018-08-08] MEDS: Vancomycin 500mg in D5W 275ml IVPB SCH (01:24)
[2018-08-08 04:00] VITALS: BP 177/76
--- NOTE | 2018-08-08 04:02 | NUR ---
NURSE NOTES: Patient has increasingly high blood pressures, with the latest being 177/76. Left message for MD, waiting for call back.
--- NOTE | 2018-08-08 04:08 | NUR ---
NURSE NOTES: MD called back with no new orders, requesting that no BPs be taken between the hours of 10pm to 6am.
[2018-08-08] MEDS: Piperacillin/Tazobactam 3.375 GM in D5W 110 ML IVPB SCH ×3 (05:21→21:04)
[2018-08-08 07:27] LABS: ANION GAP 9 mmol/L (5-15); BLOOD UREA NITROGEN 12 mg/dL (7-18); CALCIUM 9.3 MG/DL (8.5-10.1); CARBON DIOXIDE 26 MMOL/L (21-32); CHLORIDE 99 MMOL/L (98-107); CREATININE 1.3 MG/DL (0.55-1.30); POTASSIUM 3.8 MMOL/L (3.5-5.1); SODIUM 134 MMOL/L (136-145)
[2018-08-08 07:45] LABS: BASOPHILS % (AUTO) 2.2 % (0.0-2.0); EOSINOPHILS % (AUTO) 0.6 % (0.0-3.0); HEMOGLOBIN 10.3 G/DL (12.0-16.0); LYMPHOCYTES % (AUTO) 21.1 % (20.0-45.0); MEAN CORPUSCULAR VOLUME 69 FL (80-99); MONOCYTES % (AUTO) 7.2 % (1.0-10.0); NEUTROPHILS % (AUTO) 68.9 % (45.0-75.0); PLATELET COUNT 288 K/UL (150-450); RED CELL DISTRIBUTION WIDTH 12.9 % (11.6-14.8); WHITE BLOOD COUNT 5.7 K/UL (4.8-10.8)
--- NOTE | 2018-08-08 07:53 | NUR ---
NURSE NOTES: Patient is sleepy, in room air, no sign of distress and shortness of breath. No sign of chest pain; IV Left hand its salin lock; another IV Right AC running zons. Patient incontinet x2, skin left shoulder blister and echosis. Patient have a 1:1 feeder, CN Nosle is aware. Bed rails up x2, at lowest position, breaks engaged. Dr Urbina is aware that patient's blood pressure is sherry 177/76 and order wasn't received order by PM nurse Ashley. Call light within reach. Will keep monitoring.
--- NOTE | 2018-08-08 07:55 | NUR ---
HAND-OFF: Report given to JERZY Snyder.
[2018-08-08 08:00] VITALS: BP 178/76
[2018-08-08] MEDS: Heparin 5000 units/ml inj SUBQ SCH ×2 (09:17→21:05)
[2018-08-08 12:00] VITALS: BP 176/66
--- NOTE | 2018-08-08 14:28 | Podiatric Progress Note ---
Assessment/Plan Patient Angel Ling is a 88 year old female who was admitted on Aug 05, 2018 at 18:21 with Assessment/Plan A: Left foot closed 5th metatarsal fracture, minimally displaced. Left foot hallux callus P: - Pt seen and evaluated. - Left foot XR completed and reviewed. Official report negative for any acute OM or ST infection, positive for fx 5th metatarsal. - Temp, 97.7 - WBC 5.4 - ESR 22 - Pt was unable to complete MRI study to R/O OM or ST infection. - Per vasc pt will need re-vasc procedure to LLE at another hospital. - NWB to LLE strict protocol 09/05 fx. - Multi-layer pineda compression ( soft cast ) applied at bedside. Keep C/D/I. - Pain management per primary team. - based on discussion with daughter I have low clincial suspicion that she has any acute OM or ST infection. I believe most of her pain is secondary to her fracture on the Left foot. However, I cannot completely R/O infection without MRI study. - Daughter also endorses her mother has early onset possible Parkinson's Dz. I would like to recommend neurology or medicine consult for further evaluation of poss early onset Parkinson's Dz. - Rec PT evaluation and consult for NWB to LLE. - No acute surgical intervention required. - Pod will cont to monitor Subjective Allergies: Coded Allergies: No Known Allergies (Unverified , 04/29/17) Subjective S: Pt seen bedside with nursing staff and daughter. Pt resting , NAD. Daughter provided most of HPI. States that her mother has had Left foot pain x 1 month. Objective Exam Last 24 Hour Vital Signs Date Time Temp Pulse Resp B/P (MAP) Pulse Ox O2 Delivery O2 Flow Rate FiO2 08/08/18 12:00 98.2 84 18 176/66 (102) 96 08/08/18 09:00 Room Air 08/08/18 08:00 97.0 81 18 178/76 (110) 98 08/08/18 04:00 99.4 81 18 177/76 (109) 98 08/08/18 00:00 97.9 89 18 163/83 (109) 100 08/07/18 21:45 142/72 (95) 08/07/18 21:00 Room Air 08/07/18 20:00 99.6 75 19 163/64 (97) 100 08/07/18 16:00 98.6 77 20 147/59 (88) 97 Laboratory Tests Test 08/08/18 06:00 White Blood Count 5.7 K/UL (4.8-10.8) Red Blood Count 4.80 M/UL (4.20-5.40) Hemoglobin 10.3 G/DL (12.0-16.0) L Hematocrit 33.0 % (37.0-47.0) L Mean Corpuscular Volume 69 FL (80-99) L Mean Corpuscular Hemoglobin 21.6 PG (27.0-31.0) L Mean Corpuscular Hemoglobin Concent 31.3 G/DL (32.0-36.0) L Red Cell Distribution Width 12.9 % (11.6-14.8) Platelet Count 288 K/UL (150-450) Mean Platelet Volume 6.8 FL (6.5-10.1) Neutrophils (%) (Auto) 68.9 % (45.0-75.0) Lymphocytes (%) (Auto) 21.1 % (20.0-45.0) Monocytes (%) (Auto) 7.2 % (1.0-10.0) Eosinophils (%) (Auto) 0.6 % (0.0-3.0) Basophils (%) (Auto) 2.2 % (0.0-2.0) H Sodium Level 134 MMOL/L (136-145) L Potassium Level 3.8 MMOL/L (3.5-5.1) Chloride Level 99 MMOL/L (98-107) Carbon Dioxide Level 26 MMOL/L (21-32) Anion Gap 9 mmol/L (5-15) Blood Urea Nitrogen 12 mg/dL (7-18) Creatinine 1.3 MG/DL (0.55-1.30) Estimat Glomerular Filtration Rate mL/min (>60) Glucose Level 126 MG/DL (74-106) H Calcium Level 9.3 MG/DL (8.5-10.1) Microbiology Date/Time Source Procedure Growth Status 08/05/18 18:30 Blood Blood Culture - Preliminary NO GROWTH AFTER 48 HOURS Resulted Dermatological Dermatological Narrative Dermatological Narrative Vasc: +1/4 DP/PT pulses Derm: Eschar noted distal tip of L hallux and dorsal 1st MPJ. Neuro: SILT decreased to all dermatomes. MSK: Pt unable to perform ROM exam to Left foot, (+) pain upon palpation distal 5th metatarsal. Janes Antonio DPM Aug 08, 2018 14:28
--- NOTE | 2018-08-08 14:42 | General Progress Note ---
Assessment/Plan Problem List: (1) Ischemic ulcer of left foot ICD Codes: L97.529 - Non-pressure chronic ulcer of other part of left foot with unspecified severity SNOMED: 620281417 Qualifiers: Qualified Codes: L97.521 - Non-pressure chronic ulcer of other part of left foot limited to breakdown of skin (2) Parkinsonian features ICD Codes: R25.9 - Unspecified abnormal involuntary movements SNOMED: 021037691 (3) Cellulitis of left foot ICD Codes: L03.116 - Cellulitis of left lower limb SNOMED: 034500839 (4) Peripheral vascular disease ICD Codes: I73.9 - Peripheral vascular disease, unspecified SNOMED: 284301996 Assessment/Plan discussed with dr Osborn and Dr Leopoldo Velarde transfer to [facility] for angio Subjective Allergies: Coded Allergies: No Known Allergies (Unverified , 04/29/17) Subjective In NAD Objective Last 24 Hour Vital Signs Date Time Temp Pulse Resp B/P (MAP) Pulse Ox O2 Delivery O2 Flow Rate FiO2 08/08/18 12:00 98.2 84 18 176/66 (102) 96 08/08/18 09:00 Room Air 08/08/18 08:00 97.0 81 18 178/76 (110) 98 08/08/18 04:00 99.4 81 18 177/76 (109) 98 08/08/18 00:00 97.9 89 18 163/83 (109) 100 08/07/18 21:45 142/72 (95) 08/07/18 21:00 Room Air 08/07/18 20:00 99.6 75 19 163/64 (97) 100 08/07/18 16:00 98.6 77 20 147/59 (88) 97 Intake and Output 08/07/18 08/08/18 19:00 07:00 Intake Total 502.5 ml Balance 502.5 ml Intake Oral 420 ml IV Total 82.5 ml # Voids 6 3 Laboratory Tests 08/08/18 06:00: White Blood Count 5.7, Red Blood Count 4.80, Hemoglobin 10.3L, Hematocrit 33.0L , Mean Corpuscular Volume 69L, Mean Corpuscular Hemoglobin 21.6L, Mean Corpuscular Hemoglobin Concent 31.3L, Red Cell Distribution Width 12.9, Platelet Count 288, Mean Platelet Volume 6.8, Neutrophils (%) (Auto) 68.9, Lymphocytes (%) (Auto) 21.1, Monocytes (%) (Auto) 7.2, Eosinophils (%) (Auto) 0.6, Basophils (%) (Auto) 2.2H, Sodium Level 134L, Potassium Level 3.8, Chloride Level 99, Carbon Dioxide Level 26, Anion Gap 9, Blood Urea Nitrogen 12 , Creatinine 1.3, Estimat Glomerular Filtration Rate , Glucose Level 126H, Calcium Level 9.3 Height (Feet): 5 Height (Inches): 3.00 Weight (Pounds): 116 Cardiovascular: regular rhythm Respiratory/Chest: lungs clear Edema: no edema noted Generalized Beni Urbina MD Aug 08, 2018 14:42
--- NOTE | 2018-08-08 14:53 | Podiatric Progress Note ---
Assessment/Plan Patient Angel Ling is a 88 year old female who was admitted on Aug 05, 2018 at 18:21 with Assessment/Plan - Brief podiatry note: - Daughter is also concerned for her breathing at bedside, would recommend respiratory consult for evaluation of her respiratory status at bedside. She is also concerned about her not talking at bedside, would also recommend speech therapy consult. - Pre-cautions for bedsores. - Medicine consult for cataracts. - Subjective Allergies: Coded Allergies: No Known Allergies (Unverified , 04/29/17) Objective Exam Last 24 Hour Vital Signs Date Time Temp Pulse Resp B/P (MAP) Pulse Ox O2 Delivery O2 Flow Rate FiO2 08/08/18 12:00 98.2 84 18 176/66 (102) 96 08/08/18 09:00 Room Air 08/08/18 08:00 97.0 81 18 178/76 (110) 98 08/08/18 04:00 99.4 81 18 177/76 (109) 98 08/08/18 00:00 97.9 89 18 163/83 (109) 100 08/07/18 21:45 142/72 (95) 08/07/18 21:00 Room Air 08/07/18 20:00 99.6 75 19 163/64 (97) 100 08/07/18 16:00 98.6 77 20 147/59 (88) 97 Laboratory Tests Test 08/08/18 06:00 White Blood Count 5.7 K/UL (4.8-10.8) Red Blood Count 4.80 M/UL (4.20-5.40) Hemoglobin 10.3 G/DL (12.0-16.0) L Hematocrit 33.0 % (37.0-47.0) L Mean Corpuscular Volume 69 FL (80-99) L Mean Corpuscular Hemoglobin 21.6 PG (27.0-31.0) L Mean Corpuscular Hemoglobin Concent 31.3 G/DL (32.0-36.0) L Red Cell Distribution Width 12.9 % (11.6-14.8) Platelet Count 288 K/UL (150-450) Mean Platelet Volume 6.8 FL (6.5-10.1) Neutrophils (%) (Auto) 68.9 % (45.0-75.0) Lymphocytes (%) (Auto) 21.1 % (20.0-45.0) Monocytes (%) (Auto) 7.2 % (1.0-10.0) Eosinophils (%) (Auto) 0.6 % (0.0-3.0) Basophils (%) (Auto) 2.2 % (0.0-2.0) H Sodium Level 134 MMOL/L (136-145) L Potassium Level 3.8 MMOL/L (3.5-5.1) Chloride Level 99 MMOL/L (98-107) Carbon Dioxide Level 26 MMOL/L (21-32) Anion Gap 9 mmol/L (5-15) Blood Urea Nitrogen 12 mg/dL (7-18) Creatinine 1.3 MG/DL (0.55-1.30) Estimat Glomerular Filtration Rate mL/min (>60) Glucose Level 126 MG/DL (74-106) H Calcium Level 9.3 MG/DL (8.5-10.1) Microbiology Date/Time Source Procedure Growth Status 08/05/18 18:30 Blood Blood Culture - Preliminary NO GROWTH AFTER 48 HOURS Resulted Janes Antonio DPM Aug 08, 2018 14:53
--- NOTE | 2018-08-08 15:48 | Diagnostic Imaging Report ---
Indication: Headache Technique: Contiguous 5 mm thick transaxial imaging of the head obtained in a Siemens Sensation [address] scanner. Soft tissue and bone windows generated. Automatic Exposure Control was utilized. Total Dose length Product (DLP): [address] Dose Index Volume (CTDIvol): 70.38 mGy Comparison: 03/18/2018 Findings: There is mild prominence of the ventricles, basal cisterns, and cerebral sulci consistent with atrophy. Mild, nonspecific, white matter hypoattenuation is noted throughout the brain consistent with chronic small vessel disease. There is no midline shift, edema, acute hemorrhage, mass effect, or abnormal extra-axial fluid collections. Bones and extra osseous soft tissues are unremarkable. Impression: No acute intracranial bleed, mass effect or edema. Mild atrophy of the brain. Nonspecific white matter hypoattenuation probably due to chronic small vessel disease. [facility] has communicated the preliminary results to the Emergency Department. Their findings are largely concordant with this report. The CT scanner at [facility] is accredited by the [employer] and the scans are performed using dose optimization techniques as appropriate to a performed exam including Automatic Exposure control.
--- NOTE | 2018-08-08 15:48 | Diagnostic Imaging Report ---
Indication: Lower extremity pain bilateral TECHNIQUE: Duplex Doppler arterial sonography of both lower extremities performed in real-time. FINDINGS: There are no previous studies for comparison. Right arterial duplex exam: Mild to moderate arterial calcification present throughout. Biphasic waveform noted within the right common femoral and superficial femoral artery. Transition to abnormal right popliteal artery waveform demonstrated with dampened upstroke and monophasic waveform. Findings suggest significant stenosis at the distal right SFA and/or popliteal artery. Abnormal monophasic waveforms involving the right posterior tibial artery demonstrated. Peroneal artery and anterior tibial artery Doppler waveforms could not be demonstrated, presumably occluded or highly stenotic. Left arterial duplex examination: Triphasic and biphasic waveform in the left common femoral artery and superficial femoral artery demonstrated. Markedly dampened monophasic waveform noted in the left popliteal artery likely indicative of high-grade stenosis. Similar monophasic waveforms noted in the left posterior tibial artery. Faint Doppler signal noted within anterior tibial artery and dorsalis pedis. IMPRESSION: Evidence of significant peripheral vascular disease involving both lower extremities probably worse on the left. Further evaluation with conventional or CT angiogram is recommended.
[2018-08-08 16:00] VITALS: BP 171/74
--- NOTE | 2018-08-08 19:15 | NUR ---
HAND-OFF: Report given to JERZY Myers.
--- NOTE | 2018-08-08 19:45 | NUR ---
NURSE NOTES: Per am nurse,Lillian, soft cast is not to be removed per MD, to be kept clean, dry, and intact.
[2018-08-08 20:00] VITALS: BP 159/78
--- NOTE | 2018-08-08 20:06 | NUR ---
NURSE NOTES: Patient asleep, arousable to name. IVs in place. No complaints of pain at this time. No s/s distress noted. Bed in lowest position, call light within reach, bed alarm on. Soft cast noted on left leg/foot. Will continue to monitor.
[2018-08-09] VITALS (7 sets, daily range): BP systolic 131–173; BP diastolic 56–82
[2018-08-09] MEDS: Vancomycin 500mg in D5W 275ml IVPB SCH (01:00)
[2018-08-09] MEDS: Vancomycin 1gm/D5W 275ml IVPB SCH ×2 (02:06)
[2018-08-09] MEDS: Piperacillin/Tazobactam 3.375 GM in D5W 110 ML IVPB SCH ×3 (04:15→21:02)
[2018-08-09] MEDS: Morphine Sulfate 4mg/ml Inj (IV/IM USE ONLY) IVP PRN ×2 (06:03→14:13)
--- NOTE | 2018-08-09 06:03 | NUR ---
NURSE NOTES: Patient had complaints of pain, morphine prn was given per flacc scale since patient was unable to give a scale out of 10.
--- NOTE | 2018-08-09 07:08 | NUR ---
HAND-OFF: Report given to ALEK MATA RN.
--- NOTE | 2018-08-09 07:33 | NUR ---
NURSE NOTES: Patient alert x3, in room air, no sign of distress and shortness of breath; skin-on left leg mult-layer compression(soft cast) applied by Dr Tripathi, its dry and intact. L-shoulder blister. Side rails up x2, bed at lowest position, and breaks engaged. Call light with in reach, will keep monitoring.
[2018-08-09] MEDS: Heparin 5000 units/ml inj SUBQ SCH ×2 (08:58→21:03)
[2018-08-09] MEDS ORDERED: Isovue-370 150ml vial INJ PRN (10:30)
[2018-08-09] MEDS ORDERED: LORazepam Inj 2mg/ml 1ml IV SCH (10:30)
--- NOTE | 2018-08-09 13:36 | NUR ---
NURSE NOTES: Patient left the floor around 1325 for CTA. Will follow up.
--- NOTE | 2018-08-09 13:51 | NUR ---
CASE MANAGEMENT:REVIEW 08/08/18 SI: LT FOOT ISCHEMIC ULCER. PVD 98.6 94 18 171/74 98% ON RA GLUCOSE+126 IS: IV VANCOMYCIN Q24 IV ZOSYN Q8HRS NORVASC PO QD HEPARIN SQ Q12 IV MORPHINE Q3HRS PRN : MED/SURG STATUS 08/09/18 SI: LT FOOT ISCHEMIC ULCER. PVD 99.1 75 18 157/80 98% ON RA IS: IV VANCOMYCIN Q24 IV ZOSYN Q8HRS NORVASC PO QD HEPARIN SQ Q12 IV MORPHINE Q3HRS PRN : MED/SURG STATUS
--- NOTE | 2018-08-09 15:25 | General Progress Note ---
Assessment/Plan Problem List: (1) Ischemic ulcer of left foot ICD Codes: L97.529 - Non-pressure chronic ulcer of other part of left foot with unspecified severity SNOMED: 654132484 Qualifiers: Qualified Codes: L97.521 - Non-pressure chronic ulcer of other part of left foot limited to breakdown of skin (2) Parkinsonian features ICD Codes: R25.9 - Unspecified abnormal involuntary movements SNOMED: 877114653 (3) Cellulitis of left foot ICD Codes: L03.116 - Cellulitis of left lower limb SNOMED: 040029639 (4) Peripheral vascular disease ICD Codes: I73.9 - Peripheral vascular disease, unspecified SNOMED: 319639189 Assessment/Plan check CT results Abxs transfer to [facility] for angio Subjective Allergies: Coded Allergies: No Known Allergies (Unverified , 04/29/17) Subjective In NAD Objective Last 24 Hour Vital Signs Date Time Temp Pulse Resp B/P (MAP) Pulse Ox O2 Delivery O2 Flow Rate FiO2 08/09/18 12:00 99.1 75 18 157/80 (105) 98 08/09/18 09:00 Room Air 08/09/18 08:58 76 157/69 08/09/18 08:00 97.3 76 18 157/69 (98) 98 08/09/18 06:33 97.9 08/09/18 04:49 97.9 82 18 166/82 (110) 99 08/09/18 00:40 97.4 87 18 156/71 (99) 97 08/08/18 22:08 Room Air 08/08/18 20:00 98.0 94 18 159/78 (105) 98 08/08/18 16:00 98.6 94 18 171/74 (106) 98 Intake and Output 08/08/18 08/09/18 19:00 07:00 Intake Total 480 ml 110.0 ml Balance 480 ml 110.0 ml Intake Oral 480 ml IV Total 110.0 ml # Voids 4 3 Laboratory Tests 08/09/18 00:35: Vancomycin Level Trough 7.1 Height (Feet): 5 Height (Inches): 3.00 Weight (Pounds): 116 Cardiovascular: normal rate Respiratory/Chest: lungs clear Edema: no edema noted Generalized Beni Urbina MD Aug 09, 2018 15:25
[2018-08-09] MEDS: Irbesartan 150mg tablet ORAL SCH (15:43)
--- NOTE | 2018-08-09 16:01 | Diagnostic Imaging Report ---
EXAM: CT of the Left Lower Extremity Without And With Intravenous Contrast CLINICAL HISTORY: WEAK TECHNIQUE: Axial computed tomography images of the left lower extremity without and with intravenous contrast during the arterial phase of contrast enhancement. CTDI is 65 mGy and DLP is 1601 mGy-cm. One or more of the following dose reduction techniques were used: automated exposure control, adjustment of the mA and/or kV according to patient size, use of iterative reconstruction technique. Coronal and sagittal reformatted images were created and reviewed. COMPARISON: No relevant prior studies available. FINDINGS: VASCULATURE: Aorta: Extensive atherosclerotic calcifications in the distal abdominal aorta and aortic bifurcation. Left iliac arteries: Atherosclerotic calcifications of bilateral common iliac arteries. Left femoral/popliteal arteries: High grade stenosis in the mid left SFA. Occlusion of the distal SFA, left popliteal artery, and the trifurcation, likely chronic. Atherosclerotic calcifications in the mid and distal superficial femoral artery. Left calf/foot arteries: Reconstitution of the posterior and anterior tibial arteries, by collaterals. Extensive athero-sclerotic calcifications throughout. LOWER EXTREMITY: Bones/joints: No acute fracture. No dislocation. Soft tissues: Unremarkable. No abnormal contrast enhancement. IMPRESSION: 1. High grade stenosis in the mid left SFA. Occlusion of the distal SFA, left popliteal artery, and the trifurcation, likely chronic. Posterior and anterior tibial arteries are reconstituted via collaterals. 2. Extensive atherosclerotic calcifications in the aortic bifurcation and bilateral common iliac arteries without occlusion.
--- NOTE | 2018-08-09 18:20 | NUR ---
NURSE NOTES: Patient left the floor with nursing education consultant to the [facility]. Charge Nurse Roverto is aware.
--- NOTE | 2018-08-09 19:32 | NUR ---
HAND-OFF: Report given to JERZY Arauz.
--- NOTE | 2018-08-09 19:50 | NUR ---
NURSE NOTES: Received report from JERZY Treviño. Patient in bed awake ao x2-3. No signs of acute distress. Respiration even and nonlabored on room air.Bed in lowest position. Call light within reach. Will continue plan of care.
[2018-08-10] VITALS: BP 141/77
[2018-08-10] MEDS: Vancomycin 1gm/D5W 275ml IVPB SCH ×2 (02:29)
[2018-08-10 04:00] VITALS: BP 170/71
[2018-08-10] MEDS: Piperacillin/Tazobactam 3.375 GM in D5W 110 ML IVPB SCH ×2 (05:19→13:32)
[2018-08-10 08:00] VITALS: BP 132/66
--- NOTE | 2018-08-10 08:08 | NUR ---
NURSE NOTES: Patient alert to name,respirations are unlabored.soft leg cast wrap with barney wrap intact.toes warm to touch.breakfast at bed side will assist patient.Call light within reach,bed alarm is on.
--- NOTE | 2018-08-10 08:56 | Diagnostic Imaging Report ---
INDICATION: Left foot pain x2 months, calcific peripheral arterial disease is absent popliteal and pedal pulses, abnormal lower extremity Doppler exam, left foot cellulitis and ulcer TECHNIQUE: IV administration nonionic contrast. Arterial phase spiral acquisitions obtained through the abdomen, pelvis, and bilateral lower extremities. Multiplanar and 3-D reconstructions were generated. Total dose length product mGycm. CTDIvol(s) mGy. Radiation dose was minimized using automated exposure control COMPARISON: FINDINGS Abdominal aorta: Abdominal aorta demonstrates calcified atherosclerotic plaquing but no significant stenosis. Normal caliber. No evidence of dissection. There is approximately 50% diameter narrowing of the origin of the celiac axis, with some poststenotic dilatation. There is approximately 50% diameter narrowing of the superior mesenteric artery origin. The distal branches are patent and nonstenotic. The inferior mesenteric artery is patent, without significant stenosis but the renal arteries are single with an early bifurcation on the right. There is less than 50% diameter narrowing of the right renal artery origin and minimal narrowing of the left renal artery origin. Diffusely small in caliber. Right lower extremity: There is calcific objects atherosclerotic plaquing but no significant stenosis of the right common and external iliac arteries. There is approximately 50% diameter narrowing of the origin of the internal iliac artery, as well as multiple branch vessel stenoses. Patent and nonstenotic common femoral and profunda femoral arteries. There is approximately 50% diameter origin stenosis of the superficial femoral artery. The superficial femoral artery is then diffusely diseased with multiple focal stenoses of up to 80%. The popliteal artery occludes at its origin within the abductor hiatus, with multiple areas of segmental ring constitution noted. Distal to the point reconstitution, there are multiple focal stenoses, with disease extending to the terminus of the popliteal artery. The anterior tibial artery occludes proximally, but does demonstrate distal reconstitution and forms a patent dorsalis pedis artery. The peroneal artery appears to be patent over its length. The posterior tibial artery demonstrates proximal occlusion or near occlusive stenosis but reconstitutes and distally reaches the ankle as a patent vessel. Left lower extremity: There is atherosclerotic plaquing but no significant stenosis of the left common and external iliac arteries. There is approximately 50% diameter narrowing of the internal iliac artery origin. There is less than 50% diameter narrowing of the common femoral artery. The profunda femoral artery is patent with only mild origin stenosis. The superficial femoral artery demonstrates approximately 50% diameter origin stenosis. The popliteal artery demonstrates a near occlusive high-grade stenosis at its origin at the adductor hiatus, and then occludes more distally. It reconstitutes just above the knee joint but remains diffusely diseased with multiple near occlusive stenoses throughout its length. The anterior tibial artery is diffusely diseased over its length, with multiple tandem near occlusive stenoses versus occlusion proximally. It does reconstitute distally and forms a small diseased but patent dorsalis pedis artery. The tibioperoneal trunk is diffusely small in caliber but apparently patent. There is near occlusive high-grade stenosis of the posterior tibial artery at its origin. However, it does appear to remain patent and reaches the ankle as a small caliber vessel. The peroneal artery is diffusely diseased with multiple calcified plaques and likely multiple high-grade stenoses, but nonetheless does appear to maintain patency and reaches the ankle. Nonvascular: The liver and gallbladder are unremarkable. The common bile duct is minimally ectatic, measuring up to 7 mm in diameter, without evidence of downstream obstructive lesion. The pancreas, spleen, adrenals, kidneys are unremarkable. No retroperitoneal or mesenteric mass or adenopathy. The bladder is mildly distended. No pelvic mass or adenopathy. The uterus is not visualized, presumed surgically absent. The appendix is not definitely visualized, but no findings to suggest acute appendicitis are evident. No evidence of diverticulosis or diverticulitis. No small bowel distention. No free or loculated intraperitoneal gas or fluid is evident. The distal esophagus, stomach, duodenum are unremarkable. The included lung bases demonstrate posterior atelectatic changes and some scarring. The heart is upper limits of normal in size. There is diffuse mild edema of the subcutaneous fat. There is extensive degenerative spondylosis. There is anterior offset of L4 on L5 and posterior offset of L5 on S1. There is a fracture of the fifth metatarsal neck IMPRESSION: Right lower extremity no significant suprainguinal disease. Demonstrates borderline significant stenosis of the proximal superficial femoral artery. There are multifocal tandem near occlusive stenoses versus focal occlusions with multiple segmental reconstitutions involving nearly entire length of the popliteal artery. There is severe trifurcation disease, single vessel runoff via the peroneal artery, and proximal occlusion versus near occlusive stenoses of the posterior and anterior tibial arteries. These arteries do appear to reconstitute and reach the ankle, however. Left lower extremity demonstrates no significant suprainguinal disease. It demonstrates borderline significant stenosis of the superficial femoral artery origin. There is multifocal occlusive disease with multiple focal areas of reconstitution versus near occlusive disease involving the entire popliteal artery. There is essentially single-vessel runoff via patent peroneal artery. The anterior and posterior tibial arteries appear to be patent but demonstrate near occlusive stenoses proximally. Probably nonsignificant visceral vessel disease as detailed above Diffuse mild edema of the subcutaneous fat Nondisplaced fifth metatarsal neck fracture, also described on previous radiograph Mildly distended bladder Other findings as noted, including degenerative spondylosis and lumbar alignment abnormalities, posterior atelectatic changes, evidence of prior hysterectomy This agrees with the preliminary interpretation provided overnight by [facility] teleradiology service. The CT scanner at [facility] is accredited by the [employer] and the scans are performed using protocols designed to limit radiation exposure to as low as reasonably achievable to attain images of sufficient resolution adequate for diagnostic evaluation.
[2018-08-10] MEDS: Heparin 5000 units/ml inj SUBQ SCH (09:00)
[2018-08-10] MEDS: Irbesartan 150mg tablet ORAL SCH (09:33)
[2018-08-10 09:34] VITALS: BP 146/67
--- NOTE | 2018-08-10 10:59 | NUR ---
CASE MANAGEMENT:REVIEW 08/10/18 SI: LT FOOT ISCHEMIC ULCER. PVD 99.0 83 18 132/66 99% ON RA IS: IV VANCOMYCIN Q24 IV ZOSYN Q8HRS NORVASC PO QD HEPARIN SQ Q12 IV MORPHINE Q3HRS PRN : MED/SURG STATUS PLAN: TRANSFER TO [facility] FOR LT LEG ANGIOGRAM
--- NOTE | 2018-08-10 11:05 | NUR ---
TRANSFER UPDATE ORDER NOTED TO TRANSFER PATIENT TO [facility] THIS [employer] CALLED [facility] [employer] AND LEFT A [facility] REQUESTING AUTHORIZATION TO TRANSFER TRANSFER MUST BE APPROVED BY [facility] Addendum: 08/10/18 at 1141 by SAMY PARRISH LVN LVN RECEIVED CALL FROM [facility]SE [employer] STATING [facility] IS A PARTICIPATING FACILITY BUT SHE CANNOT ASSIST WITH THIS TRANSFER CALLED [facility], ONE CALL AND SPOKE WITH [facility] T: [phone] F: [phone] FAXED CLINICALS TO [facility] AWAITING ACCEPTANCE AT [facility] ALSO UPDATED STONE AT [facility] T; [phone]
--- NOTE | 2018-08-10 11:05 | NUR ---
INSURANCE AVAILABLE CLINICALS FAXED TO: [facility] NCM:CORINE P:[phone] F:[phone] REF#[id number]
--- NOTE | 2018-08-10 12:04 | NUR ---
CONCERNING MRI... UNFORTUNATELY, MRI SCANNER IS NOT FULLY WORKING AT THIS TIME. [facility] SHOULD BE HERE TODAY. PLEASE KEEP IN MIND WE HAVE ALREADY TRIED TWO TIMES BEFORE, BOTH TIMES PT CAN'T STAY STILL, EVEN WHEN ASLEEP FROM IV SEDATION. VERBAL INSISTENCE FROM FAMILY MEMBERS WILL NOT HELP, BECAUSE ONCE THE PT MOVES SUBSTANTIALLY DURING THE 30 MINUTE SCAN EVEN ONCE, WE HAVE TO RE-LOCALIZER HER, WHICH TAKES ABOUT 5 MINUTES JUST TO DO THAT.
--- NOTE | 2018-08-10 13:31 | General Progress Note ---
Assessment/Plan Problem List: (1) Ischemic ulcer of left foot ICD Codes: L97.529 - Non-pressure chronic ulcer of other part of left foot with unspecified severity SNOMED: 433831924 Qualifiers: Qualified Codes: L97.521 - Non-pressure chronic ulcer of other part of left foot limited to breakdown of skin (2) Parkinsonian features ICD Codes: R25.9 - Unspecified abnormal involuntary movements SNOMED: 529230303 (3) Cellulitis of left foot ICD Codes: L03.116 - Cellulitis of left lower limb SNOMED: 014588186 (4) Peripheral vascular disease ICD Codes: I73.9 - Peripheral vascular disease, unspecified SNOMED: 946924281 Assessment/Plan Abxs transfer to [facility] for angio discussed with dr Osborn Subjective Allergies: Coded Allergies: No Known Allergies (Unverified , 04/29/17) Subjective In NAD Objective Last 24 Hour Vital Signs Date Time Temp Pulse Resp B/P (MAP) Pulse Ox O2 Delivery O2 Flow Rate FiO2 08/10/18 09:34 90 146/67 08/10/18 09:33 146/67 08/10/18 09:00 Room Air 08/10/18 08:00 98.1 83 18 132/66 (88) 99 08/10/18 04:00 97.8 78 18 170/71 (104) 99 08/10/18 00:00 99.0 86 16 141/77 (98) 97 08/09/18 21:00 Room Air 08/09/18 20:00 98.3 88 16 131/56 (81) 100 08/09/18 17:00 98.2 79 19 154/66 (95) 99 08/09/18 16:00 97.9 81 19 173/78 (109) 97 08/09/18 15:43 173/78 08/09/18 14:43 99.1 Intake and Output 08/09/18 08/10/18 19:00 07:00 Intake Total 640 ml Balance 640 ml Intake Oral 640 ml # Voids 5 3 Height (Feet): 5 Height (Inches): 3.00 Weight (Pounds): 116 Cardiovascular: normal rate Respiratory/Chest: lungs clear Edema: no edema noted Generalized Beni Urbina MD Aug 10, 2018 13:31
--- NOTE | 2018-08-10 14:35 | Podiatric Progress Note ---
Assessment/Plan Patient Angel Ling is a 88 year old female who was admitted on Aug 05, 2018 at 18:21 with Assessment/Plan A: Left foot closed 5th metatarsal fracture, minimally displaced. Left foot hallux callus P: - Pt seen and evaluated. - Left foot XR completed and reviewed. Official report negative for any acute OM or ST infection, positive for fx 5th metatarsal. - Pt was unable to complete MRI study to R/O OM or ST infection. - Per vasc pt will need re-vasc procedure to LLE at another hospital. - NWB to LLE strict protocol 09/05 fx. - Multi-layer pineda compression ( soft cast ) applied at bedside. Keep C/D/I. - Rec PT evaluation and consult for NWB to LLE. - No acute surgical intervention required. - If MRI study cannot be completed, can re-attempt at next hospital post transfer. - Pod will cont to monitor Subjective Allergies: Coded Allergies: No Known Allergies (Unverified , 04/29/17) Subjective - Pt resting at bedside, appears NAD. Soft cast is C/D/I to LLE. Objective Exam Last 24 Hour Vital Signs Date Time Temp Pulse Resp B/P (MAP) Pulse Ox O2 Delivery O2 Flow Rate FiO2 08/10/18 09:34 90 146/67 08/10/18 09:33 146/67 08/10/18 09:00 Room Air 08/10/18 08:00 98.1 83 18 132/66 (88) 99 08/10/18 04:00 97.8 78 18 170/71 (104) 99 08/10/18 00:00 99.0 86 16 141/77 (98) 97 08/09/18 21:00 Room Air 08/09/18 20:00 98.3 88 16 131/56 (81) 100 08/09/18 17:00 98.2 79 19 154/66 (95) 99 08/09/18 16:00 97.9 81 19 173/78 (109) 97 08/09/18 15:43 173/78 08/09/18 14:43 99.1 Microbiology Date/Time Source Procedure Growth Status 08/05/18 18:30 Blood Blood Culture - Preliminary NO GROWTH AFTER 4 DAYS Resulted Dermatological Dermatological Narrative LLE: Cast noted to be C/D/I to LLE. DIGITAL SALES DIRECTOR < 5 seconds noted to digits 1-5. Gandomani,Janes Boris DPM Aug 10, 2018 14:35
--- NOTE | 2018-08-10 14:47 | NUR ---
TRANSFER CONFIRMED RECEIVED CALL FROM MIKE AT [facility] STATING THEY ARE ACCEPTING THIS PATIENT PATIENT WILL TRANSFER TO [facility] ROOM 1011B T:[phone] FOR NURSE TO NURSE REPORT [facility] HAS BEEN ARRANGED FOR 1530 [address] CONTINUE PATIENT NPO Addendum: 08/10/18 at 1454 by SAMY PARRISH LVN LVN ACCEPTING PHYSICIAN IS DR ZHANG
--- NOTE | 2018-08-10 15:52 | NUR ---
NURSE NOTES: Waiting for call back from [facility] to give report.[facility] here to transfer patient.IV heplock remains in place.ID hospital band removed.Patient has no personal belongings,will notify family of patient transfer.Left lower leg soft cast remains in place.
--- NOTE | 2018-08-10 16:16 | NUR ---
NURSE NOTES: Report given to Taya BERTRAND at [facility]
--- NOTE | 2018-08-10 16:56 | NUR ---
08/10 pt IS BEING TRANSFERED TO [facility] TODAY PER RN (DAISY) - CS
--- NOTE | 2018-08-11 08:55 | Cardiology Report ---
APPROVED REPORT EXAM: Two-dimensional and M-mode echocardiogram with Doppler and color Doppler. M-Mode DIMENSIONS IVSd0.9 (0.7-1.1cm)Left Atrium (MM)3.1 (1.6-4.0cm) LVDd4.0 (3.5-5.6cm)Aortic Root3.1 (2.0-3.7cm) PWd1.1 (0.7-1.1cm)Aortic Cusp Exc.1.7 (1.5-2.0cm) IVSs1.5 cm LVDs2.3 (2.5-4.0cm) PWs1.1 cm Normal left ventricular chamber size, systolic function and wall motion . Left ventricular ejection fraction estimated to be 60-65 %. Mild left ventricular hypertrophy by 2-D. No evidence of pericardial effusion. All other cardiac chamber sizes are within normal limits. Aortic valve sclerosis with adequate cusp excursion. Moderately thickened mitral valve leaflets with normal excursion. Mitral annulus and aortic root calcification. Pulmonic valve not well visualized. IVC in normal size with physiologic collapse suggestive of increased RA pressure. A color flow and spectral Doppler study was performed and revealed: No aortic regurgitation. Mitral diastolic velocities suggest reduced left ventricular relaxation c/w mild LV diastolic dysfunction (Grade I ) Trace mitral regurgitation. Mild tricuspid regurgitation. Tricuspid systolic velocities suggests peak right ventricular systolic pressure of 56mmHg, consistent with moderate pulmonary hypertension.
--- NOTE | 2018-08-11 14:07 | Discharge Summary ---
Discharge Summary Discharge Summary _ DATE OF ADMISSION: 08/05/2018 DATE OF DISCHARGE: 08/10/2018 DISCHARGED BY: Dr. Beni Urbina REASON FOR ADMISSION: 88 years old female with past medical history of hypertension, Parkinson features, was brought to emergency department with left foot pain. Patient lives with her daughter. angioplasty performed in June. Patient was under care of civil rights representative. No history of diabetes. Patient came to emergency room for evaluation due to severe pain in the left foot. Vital signs revealed severe systolic hypertension 192/70 Laboratory workup revealed no leukocytosis, hemoglobin 11, hematocrit 36.1. Lactic acid 1.4. ESR 22. BUN 26, creatinine 1.2. Glucose 87. Troponin negative. EKG reveals sinus rhythm no acute ischemic changes Pro BNP 308. Albumin 3.7. TSH within normal limits. Physical examination revealed left foot discoloration and mottling , also noted ulcer in the big toe and the fourth toe. Left foot x-ray revealed acute fracture of fifth metatarsal and generalized osteopenia. Arterial duplex revealed evidence of significant peripheral vascular disease involving both lower extremity , probably worse on the left. Chest x-ray revealed no acute cardiopulmonary findings. Patient was admitted for further management CONSULTANTS: civil rights representative Dr. Antonio vascular surgeon Dr. Osborn [facility] COURSE: Patient admitted to medical surgical floor. Podiatry and vascular surgery consults were requested. Pain management was addressed . Bowel regimen instituted . Home medication were resumed. Echocardiogram revealed ejection fraction of 60-65%. No evidence of pericardial effusion. No evidence of wall motion abnormality. Right ventricular systolic pressure of 56 , consistent with a moderate pulmonary hypertension. CTA of the abdomen with run-off with and without contrast, revealed evidence of significant peripheral vascular disease. CT of the left lower extremity revealed high-grade stenosis in the mid left superficial femoral artery. Occlusion of the distal superficial femoral artery , left popliteal artery and the trifurcation was likely chronic. Posterior and anterior tibial artery reconstituted via collaterals. Extensive atherosclerotic calcification in the aortic bifurcation and bilateral common iliac arteries without occlusion. Patient was on empiric antibiotics. Blood cultures were negative. Food Mobile Driver closely followed. Patient was unable to complete MRI study to rule out osteomyelitis . X-ray was negative for acute osteomyelitis , but positive for the fracture of fifth metatarsal. Multilayer Huerta compression cast /soft cast/ was applied at the bedside. Patient was advised to keep it clean ,dry and intact. Nonweightbearing to left lower extremity secondary to fracture was enforced. No acute surgical intervention was required. Fracture was minimally displaced. Patient started to work with physical therapy with nonweightbearing of the left lower extremity. Food Mobile Driver recommended wound care and reattempt MRI at another facility. Vascular surgeon followed. Per vascular surgeon, patient will need to have revascularization procedure at the lower left lower extremity at another facility. CT angiogram and vascular duplex were reviewed by surgeon. Patient had absent popliteal and pedal pulses. According to vascular surgeon, patient will need selective left leg angiogram to assess for percutaneous revascularization, once medically clear. Blood pressure was managed with the ARB and calcium channel jessica , and remained stable. DVT prophylaxis provided. Renal parameters and electrolytes were closely monitored, electrolytes corrected as needed and nephrotoxins were avoided. Patient was stable for transfer to [facility] for revascularization procedure FINAL DIAGNOSES: Ischemic ulcer of left foot Cellulitis of left foot Peripheral vascular disease Calcific peripheral arterial disease with absent popliteal and pedal pulses Hypertension Left foot fifth metatarsal fracture, minimally displaced Left foot hallux Parkinsonian features Dementia DISCHARGE MEDICATIONS: See Medication Reconciliation list. DISCHARGE INSTRUCTIONS: Patient was transferred to [facility] for revascularization procedure. I have been assigned to dictate discharge summary for this account. I was not involved in the patient's management. Lolly Donaldson NP Aug 11, 2018 14:07
== END 2018-08-10 16:40 | disposition short-term general hospital (02) | DRG 594 ==
LOC: EMR 18:07 → EDBEDREQ 18:10 → 4E 18:21 → EDBEDREQ 18:58 → 4E 21:05
DX: L97.529 Non-pressure chronic ulcer of other part of left foot with unspecified severity (principal); S92.352A Displaced fracture of fifth metatarsal bone, left foot, initial encounter for closed fracture; I73.89 Other specified peripheral vascular diseases; I77.1 Stricture of artery; I10 Essential (primary) hypertension; X58.XXXA Exposure to other specified factors, initial encounter; G20 Parkinson's disease; F02.80 Dementia in other diseases classified elsewhere, unspecified severity, without behavioral disturbance, psychotic disturbance, mood disturbance, and anxiety; L84 Corns and callosities; E11.9 Type 2 diabetes mellitus without complications
CPT/HCPCS: 36415; 70450; 71045; 75635; 80048; 80053; 80202; 81003; 82550; 82962; 83605; 83880; 84443; 84484; 85025; 85610; 85651; 85730; 86140; 86850; 86900; 86901; 87040; 93306; 93925; 96365; 96368; 96375; 99285; J2405